=== PATIENT | male | born 1945 | race Caucasian/White ===

== ENCOUNTER 2017-04-17 13:38 | Inpatient (IN) | payer MEDICARE, OTHER ==
[~2017-04-17] VITALS: Ht 172.7 cm; Wt 56.7 kg
[2017-04-17 13:53] VITALS: BP 118/72; PULSE 71; RESP 16; TEMP 98.6
--- NOTE | 2017-04-17 14:11 | PD ---
HPI Chief Complaint: Altered Mental Status Time Seen by Provider: 14:03 Travel History International Travel<30 days: No Contact w/Intl Traveler<30days: No Traveled to known affect area: No History of Present Illness HPI Patient comes in for failure to thrive and altered mental status. Patient transferred from [facility]. Patient has a history of schizophrenia, dementia, hyperlipidemia, hypertension, GERD, and depression. Patient is nonverbal thus limiting H&P, but responds to painful stimuli. Patient reportedly has not been eating or drinking much over the last 5 days per RN report sent by rehabilitation [facility]. Nothing made symptoms better or worse as reported to RN. [facility] Past Medical History Depression: Yes High Cholesterol: Yes Dementia: Yes Schizophrenia: Yes Social History Alcohol Use: No Tobacco Use: No Substance Use: No Allergies-Medications (Allergen,Severity, Reaction): Coded Allergies: COLT Inhibitors (Verified Allergy, Unknown, 04/17/17) Review of Systems ROS Limitations: Altered Mental Status Except as stated in HPI: all other systems reviewed are Neg Physical Exam Exam Limitations: Altered Mental Status Narrative GENERAL: Well-developed, under nourished, in no acute distress, and ill appearing, but nontoxic. SKIN: Focused skin assessment warm and dry. Mild tenting of the skin noted. HEAD: Atraumatic. Normocephalic. EYES: Pupils equal and round. EOMI. No scleral icterus. No injection or drainage. ENT: No nasal bleeding or discharge. Mucous membranes pink and moist. There is questionable thrush location is not cooperative for me to evaluate fully on this. NECK: Trachea midline. Supple. No nuclear rigidity. CARDIOVASCULAR: Regular rate and rhythm. No murmur appreciated. RESPIRATORY: No accessory muscle use. No respiratory distress. Clear to auscultation. Breath sounds equal bilaterally. GASTROINTESTINAL: Abdomen soft, non-tender, nondistended, and no guarding. Hepatic and splenic margins not palpable. Normal bowel sounds 4. No pulsatile mass. MUSCULOSKELETAL: No obvious deformities. No clubbing. No cyanosis. No edema. NEUROLOGICAL: Awake and alert. No obvious cranial nerve deficits. Data Data Last Documented VS Vital Signs Date Time Temp Pulse Resp B/P Pulse Ox O2 Delivery O2 Flow Rate FiO2 04/17/17 13:59 97 Room Air 04/17/17 13:53 98.6 71 16 118/72 Orders Electrocardiogram (04/17/17 14:02) Complete Blood Count With Diff (04/17/17 14:02) Comprehensive Metabolic Panel (04/17/17 14:02) Creatine Kinase (Cpk) (04/17/17 14:02) Prothrombin Time / Inr (Pt) (04/17/17 14:02) Act Partial Throm Time (Ptt) (04/17/17 14:02) Troponin I (04/17/17 14:02) Urinalysis - C+S If Indicated (04/17/17 14:02) Lactic Acid Sepsis Protocol (04/17/17 14:02) Blood Culture (04/17/17 14:02) Chest, Single Ap (04/17/17 14:02) Ct Brain W/O Iv Contrast(Rout) (04/17/17 14:02) Blood Glucose (04/17/17 14:02) Ecg Monitoring (04/17/17 14:02) Iv Access Insert/Monitor (04/17/17 14:02) Oximetry (04/17/17 14:02) CKMB (04/17/17 14:05) CKMB% (04/17/17 14:05) Sodium Chlorid 0.9% 500 Ml Inj (Ns 500 M (04/17/17 15:15) Comprehensive Metabolic Panel (04/18/17 06:00) Free Thyroxine (T4) (04/18/17 06:00) Hemoglobin (Hgb) A1c (04/18/17 06:00) Magnesium (Mg) (04/18/17 06:00) Phosphorus (Po4) (04/18/17 06:00) Thyroid Stimulating Hormone (04/18/17 06:00) Complete Blood Count With Diff (04/18/17 06:00) Admit To Inpatient (04/17/17 ) Vital Signs (Adult) Q4H (04/17/17 16:45) Neuro Checks Q4H (04/17/17 16:45) Activity Oob With Assistance (04/17/17 16:45) Diet Regular Basic (04/17/17 Dinner) D5-1/2 Ns + Kcl 20 Meq Inj (D5-1/2 Ns + (04/17/17 16:45) Sodium Chloride 0.9% Flush (Ns Flush) (04/17/17 16:45) Sodium Chloride 0.9% Flush (Ns Flush) (04/17/17 21:00) Acetaminophen (Tylenol) (04/17/17 16:45) Ondansetron Inj (Zofran Inj) (04/17/17 18:00) Prochlorperazine Supp (Compazine Supp) (04/17/17 16:45) Resp Oxygen Abhinav C Titrat 1-4 L (04/17/17 ) Pt Request For Service (04/17/17 16:45) Ot Request For Service (04/17/17 16:45) Speech Therapy Consult-Eval/Tx (04/17/17 16:45) Case Management Consult (04/17/17 16:45) Vte Prophylaxis Not Indicated (04/17/17 16:45) Enoxaparin Inj (Lovenox Inj) (04/17/17 16:45) Scd Bilateral/Knee High KRYSTA.BID (04/17/17 16:45) Mynor Bilateral/Knee High KRYSTA.QSHIFT (04/17/17 16:45) Naloxone Inj (Narcan Inj) (04/17/17 16:45) Docusate Sodium-Senna (Kasandra-Colace) (04/17/17 21:00) Magnesium Hydroxide Liq (Milk Of Magnesi (04/17/17 16:45) Sennosides (Senokot) (04/17/17 16:45) Bisacodyl Supp (Dulcolax Supp) (04/17/17 16:45) Lactulose Liq (Lactulose Liq) (04/17/17 16:45) Inpatient Certification (04/17/17 ) Admit Order (Ed Use Only) (04/17/17 16:48) Labs Laboratory Tests Test 04/17/17 04/17/17 14:05 15:20 White Blood Count 8.0 TH/MM3 Red Blood Count 5.12 MIL/MM3 Hemoglobin 15.9 GM/DL Hematocrit 46.2 % Mean Corpuscular Volume 90.3 FL Mean Corpuscular Hemoglobin 31.0 PG Mean Corpuscular Hemoglobin 34.4 % Concent Red Cell Distribution Width 13.3 % Platelet Count 181 TH/MM3 Mean Platelet Volume 8.7 FL Neutrophils (%) (Auto) 75.8 % Lymphocytes (%) (Auto) 14.6 % Monocytes (%) (Auto) 8.8 % Eosinophils (%) (Auto) 0.3 % Basophils (%) (Auto) 0.5 % Neutrophils # (Auto) 6.1 TH/MM3 Lymphocytes # (Auto) 1.2 TH/MM3 Monocytes # (Auto) 0.7 TH/MM3 Eosinophils # (Auto) 0.0 TH/MM3 Basophils # (Auto) 0.0 TH/MM3 CBC Comment DIFF FINAL Differential Comment Prothrombin Time 13.1 SEC Prothromb Time International 1.2 RATIO Ratio Activated Partial 26.6 SEC Thromboplast Time Sodium Level 154 MEQ/L Potassium Level 4.0 MEQ/L Chloride Level 116 MEQ/L Carbon Dioxide Level 27.6 MEQ/L Anion Gap 10 MEQ/L Blood Urea Nitrogen 38 MG/DL Creatinine 1.04 MG/DL Estimat Glomerular Filtration 71 ML/MIN Rate Random Glucose 87 MG/DL Lactic Acid Level 1.1 mmol/L Calcium Level 8.8 MG/DL Total Bilirubin 0.8 MG/DL Aspartate Amino Transf 22 U/L (AST/SGOT) Alanine Aminotransferase 18 U/L (ALT/SGPT) Alkaline Phosphatase 90 U/L Total Creatine Kinase 331 U/L Creatine Kinase MB 1.2 NG/ML Creatine Kinase MB % 0.4 % Troponin I LESS THAN 0.02 NG/ML Total Protein 6.5 GM/DL Albumin 3.5 GM/DL Urine Color YELLOW Urine Turbidity CLEAR Urine pH 5.5 Urine Specific [place] 1.034 Urine Protein 30 mg/dL Urine Glucose (UA) NEG mg/dL Urine Ketones 40 mg/dL Urine Occult Blood NEG Urine Nitrite NEG Urine Bilirubin NEG Urine Urobilinogen 2.0 MG/DL Urine Leukocyte Esterase NEG Urine RBC LESS THAN 1 /hpf Urine WBC 1 /hpf Urine Mucus FEW /lpf Microscopic Urinalysis Comment CATH-CULT NOT IND MDM Medical Decision Making Medical Screen Exam Complete: Yes Emergency Medical Condition: Yes Interpretation(s) CT head read by the radiologist shows: Negative for an acute process. Chest x-ray by the radiologist shows: No acute process. Differential Diagnosis Alterman also asked, failure to thrive, dehydration, electrolyte abnormality, CVA, pneumonia, UTI, other Narrative Course Patient was seen and examined. IV was established patient's placed on continues cardiac monitoring. Patient was given 500 cc of IV fluid. Labs were obtained and reviewed. Chest x-ray and CT were obtained and reviewed. Discussed patient with Dr. Hendricks, who is in agreement with plan of care and disposition. Discussed patient with hospitalist, who is agreeable to admit the patient. Physician Communication Physician Communication [id number] Ortiz, who is agreeable to admit the patient. Diagnosis Primary Impression: Altered mental status, unspecified Qualified Code: R41.82 - Altered mental status, unspecified altered mental status type Additional Impressions: Failure to thrive in adult Mild dehydration Admitting Information Admitting Physician Requests: Admit Condition: Stable George Thakur Apr 17, 2017 14:11
[2017-04-17 14:27] LABS: AUTOMATED NEUTROPHIL # 6.1 TH/MM3 (1.8-7.7); BASOPHIL % 0.5 % (0.0-2.0); EOSINOPHIL % 0.3 % (0.0-4.0); HEMATOCRIT 46.2 % (39.0-51.0); HEMO FLAGS DIFF FINAL; LYMPH % 14.6 % (9.0-44.0); LYMPHOCYTE # 1.2 TH/MM3 (1.0-4.8); MEAN CELL VOLUME 90.3 FL (80.0-100.0); MEAN CORPUSCULAR HGB CONC 34.4 % (32.0-36.0); MONO % 8.8 % (0.0-8.0); NEUT % 75.8 % (16.0-70.0); PLATELET COUNT 181 TH/MM3 (150-450); RED BLOOD COUNT 5.12 MIL/MM3 (4.50-5.90); RED CELL DISTRIBUTION WIDTH 13.3 % (11.6-17.2)
[2017-04-17 14:36] LABS: APTT (PATIENT) 26.6 SEC (24.3-30.1); INTERNATIONAL NORMALIZED RATIO 1.2 RATIO; PROTHROMBIN TIME - PATIENT 13.1 SEC (9.8-11.6)
[2017-04-17 14:45] LABS: ANION GAP 10 MEQ/L (5-15); AST (GOT) 22 U/L (15-37); BICARBONATE 27.6 MEQ/L (21.0-32.0); BLOOD UREA NITROGEN 38 MG/DL (7-18); CHLORIDE 116 MEQ/L (98-107); GLOMERULAR FILTRATION RATE 71 ML/MIN (>89); SODIUM (NA) 154 MEQ/L (136-145)
[2017-04-17 14:46] LABS: ALT (GPT) 18 U/L (12-78)
[2017-04-17 14:50] LABS: ALKALINE PHOSPHATASE 90 U/L (45-117); CREATINE KINASE 331 U/L (39-308); TOTAL BILIRUBIN ADULT 0.8 MG/DL (0.2-1.0)
[2017-04-17 15:01] LABS: CKMB 1.2 NG/ML (0.5-3.6)
[2017-04-17] MEDS ORDERED: SODIUM CHLORID 0.9% 500 ML INJ 500 ML IV ONE (15:15)
[2017-04-17 15:45] LABS: BLOOD, URINE NEG (NEG); GLUCOSE,URINE NEG (NEG); KETONE, URINE 40 mg/dL (NEG); MUCUS URINE FEW /lpf (OCC); NITRITE,URINE NEG (NEG); PH, URINE 5.5 (5.0-8.5); URINE COLOR YELLOW (YELLW/STRAW)
[2017-04-17 15:47] LABS: COMMENT (UR) CATH-CULT NOT IND; CULTURE IF INDICATED CATH CULTURE NOT IND
--- NOTE | 2017-04-17 15:49 | RADRPT ---
EXAM DATE/TIME: 04/17/2017 14:36 [facility] COMPARISON: No previous studies available for comparison. INDICATIONS : Short of breath. MEDICAL HISTORY : Altered mental status SURGICAL HISTORY : Unobtainable ENCOUNTER: Initial ACUITY: 1 day PAIN SCORE: Non-responsive. LOCATION: Bilateral chest FINDINGS: A single view of the chest demonstrates the lungs to be symmetrically aerated without evidence of mas s, infiltrate or effusion. The cardiomediastinal contours are unremarkable. Osseous structures are intact. CONCLUSION: No acute disease. Wing Rivera MD on April 17, 2017 at 15:47 Board Certified Radiologist. This report was verified electronically.
--- NOTE | 2017-04-17 16:15 | RADRPT ---
EXAM DATE/TIME: 04/17/2017 15:39 [facility] COMPARISON: No previous studies available for comparison. INDICATIONS : Altered mental status. RADIATION DOSE: 56.35 CTDIvol (mGy) MEDICAL HISTORY : Dementia. SURGICAL HISTORY : None. ENCOUNTER: Initial ACUITY: 1 day PAIN SCALE: Non-responsive LOCATION: Bilateral head TECHNIQUE: Multiple contiguous axial images were obtained of the head. Using automated exposure control and adj ustment of the mA and/or kV according to patient size, radiation dose was kept as low as reasonably a chievable to obtain optimal diagnostic quality images. DICOM format image data is available electro nically for review and comparison. FINDINGS: CEREBRUM: The ventricles are normal for age. No evidence of midline shift, mass lesion, hemorrhage or acute in farction. No extra-axial fluid collections are seen. POSTERIOR FOSSA: The cerebellum and brainstem are intact. The 4th ventricle is midline. The cerebellopontine angle i s unremarkable. EXTRACRANIAL: The visualized portion of the orbits is intact. SKULL: The calvaria is intact. No evidence of skull fracture. CONCLUSION: Negative for an acute process. Oneil Rae MD FACR on April 17, 2017 at 16:13 Board Certified Radiologist. This report was verified electronically.
[2017-04-17] MEDS ORDERED: SODIUM CHLORIDE 0.9% FLUSH 10 ML FLUSH IV FLUSH PRN (16:45)
[2017-04-17] MEDS ORDERED: NALOXONE HCL 0.4 MG/ML AMP IV PRN (16:45)
[2017-04-17] MEDS ORDERED: SENNOSIDES 8.6 MG TAB PO PRN (16:45)
[2017-04-17] MEDS ORDERED: LACTULOSE SYRUP 20 GM/30 ML CUP PO PRN (16:45)
[2017-04-17] MEDS ORDERED: MAGNESIUM HYDROXIDE SUSP 30 ML CUP PO PRN (16:45)
[2017-04-17] MEDS ORDERED: BISACODYL 10 MG SUPP RECTAL PRN (16:45)
[2017-04-17] MEDS ORDERED: ACETAMINOPHEN 325 MG TAB PO PRN (17:00)
--- NOTE | 2017-04-17 17:32 | HHI.HP ---
[facility] Santosh Aldrich MD Admission Diagnosis altered mental status, failure to thrive, dehydration Diagnoses: (1) Failure to thrive in adult Diagnosis: Principal (2) Altered mental status, unspecified Diagnosis: Principal (3) Dehydration Diagnosis: Principal (4) Hypercalcemia Diagnosis: Secondary (5) Schizophrenia Diagnosis: Secondary (6) Dementia Diagnosis: Secondary (7) GERD (gastroesophageal reflux disease) Diagnosis: Secondary (8) HTN (hypertension) Diagnosis: Secondary (9) Oral thrush Diagnosis: Principal Chief Complaint: poor PO intake Travel History International Travel<30 Days: No Contact w/Intl Traveler <30 Da: No Traveled to Known Affected Are: No History of Present Illness This is a 71-year-old male patient sent from a local shelter facility with past medical history which includes dementia, schizophrenia, depression, hypertension, hyperlipidemia and GERD. Patient was sent to the emergency department because he has had poor by mouth intake for the past 5 days. According to review of shelter facility records patient has had a decline over the past 3 weeks. At this point patient is non-verbal and unable to follow commands therefore information gathered from physical exam as well as review of prior computerized charting and shelter facility documentation. Patient appears cachectic, dehydrated and smells of urine. Review of Systems ROS Limitations: Clinical Condition, Altered Mental Status, Poor Historian Past Family Social History Past Medical History dementia, schizophrenia, depression, hypertension, hyperlipidemia and GERD Past Surgical History Unable to obtain at this time secondary to patient's clinical condition Reported Medications ABH gel Aspirin 81 mg by mouth daily Carbidopa levodopa 85226 milligrams one tablet 3 times a day Clozapine 300 mg by mouth daily Norvasc 5 mg by mouth daily Seroquel 200 mg by mouth at bedtime, 50 mg by mouth 2 times a day Zoloft 150 mg by mouth daily Zocor 10 mg by mouth daily Colace 100 mg 1 tablet daily Ibuprofen 200 mg 2 tablets by mouth every 6 hours as needed for pain and MiraLAX daily Ropinirole 0.25 mg every 8 hours Tylenol 325 mg 2 tablets by mouth every 4 hours as needed for pain Allergies: Coded Allergies: COLT Inhibitors (Verified Allergy, Unknown, 04/17/17) Active Ordered Medications Current Medications Medications (Trade) Dose Ordered Sig/Kimberly Route Start Time Stop Time Status Last Admin (D5-1/2 NS + KCl 20 Meq Inj) 1,000 ml @ 100 mls/hr Q10H IV 04/17/17 16:45 (NS Flush) 2 ml UNSCH PRN IV FLUSH 04/17/17 16:45 (NS Flush) 2 ml BID IV FLUSH 04/17/17 21:00 (Tylenol) 650 mg Q4H PRN PO 04/17/17 17:00 (Zofran Inj) 4 mg Q6HR PRN IVP 04/17/17 18:00 (Compazine Supp) 25 mg Q12HR PRN RECTAL 04/17/17 21:00 (Lovenox Inj) 30 mg Q24H SQ 04/17/17 18:00 (Narcan Inj) 0.4 mg UNSCH PRN IV 04/17/17 16:45 (Kasandra-Colace) 1 tab BID PO 04/17/17 21:00 (Milk Of Magnesia Liq) 30 ml Q12H PRN PO 04/17/17 16:45 (Senokot) 17.2 mg Q12H PRN PO 04/17/17 16:45 (Dulcolax Supp) 10 mg DAILY PRN RECTAL 04/17/17 16:45 Lactulose 30 ml 30 ml DAILY PRN PO 04/17/17 16:45 (Diflucan 100 Mg Premix Bag) 50 ml @ 50 mls/hr Q24H IV 04/17/17 17:00 Family History Unable to obtain secondary to patient's mental status Social History Patient currently resides in shelter facility Physical Exam Vital Signs Vital Signs Date Time Temp Pulse Resp B/P Pulse Ox O2 Delivery O2 Flow Rate FiO2 04/17/17 13:59 97 Room Air 04/17/17 13:53 98.6 71 16 118/72 Physical Exam GENERAL: This is a cachectic elderly gentleman visibly dehydrated with dry oral mucosa poor skin turgor nonverbal and does not follow commands SKIN: Generalized thinning of skin with poor skin turgor and tenting. Sacral area of pink blanchable HEAD: Atraumatic. Normocephalic. No temporal or scalp tenderness. EYES: Unable to fully evaluate patient's eyes are matted shut ENT: Unable to open patient's mouth to fully assess possible thrush NECK: Trachea midline. No JVD or lymphadenopathy. Supple, nontender, no meningeal signs. CARDIOVASCULAR: Regular rate and rhythm without murmurs, gallops, or rubs. S1- S2 no S3 or S4 no heave or thrill or rub or gallop RESPIRATORY: Diminished throughout with poor air entry secondary to effort GASTROINTESTINAL: Abdomen soft, non-tender, nondistended. No guarding. Hypoactive bowel sounds 4 quadrants MUSCULOSKELETAL: Generalized muscular atrophy noted. Quite contracted at this time NEUROLOGICAL: Patient resting in bed does not open eyes to verbal stimuli. HE IS nonverbal and does not follow commands. Generalized weakness throughout Not able to assess insight and judgment NOR mood and behavior Laboratory Laboratory Tests Test 04/17/17 04/17/17 14:05 15:20 White Blood Count 8.0 Red Blood Count 5.12 Hemoglobin 15.9 Hematocrit 46.2 Mean Corpuscular Volume 90.3 Mean Corpuscular Hemoglobin 31.0 Mean Corpuscular Hemoglobin 34.4 Concent Red Cell Distribution Width 13.3 Platelet Count 181 Mean Platelet Volume 8.7 Neutrophils (%) (Auto) 75.8 Lymphocytes (%) (Auto) 14.6 Monocytes (%) (Auto) 8.8 Eosinophils (%) (Auto) 0.3 Basophils (%) (Auto) 0.5 Neutrophils # (Auto) 6.1 Lymphocytes # (Auto) 1.2 Monocytes # (Auto) 0.7 Eosinophils # (Auto) 0.0 Basophils # (Auto) 0.0 CBC Comment DIFF FINAL Differential Comment Prothrombin Time 13.1 Prothromb Time International 1.2 Ratio Activated Partial 26.6 Thromboplast Time Sodium Level 154 Potassium Level 4.0 Chloride Level 116 Carbon Dioxide Level 27.6 Anion Gap 10 Blood Urea Nitrogen 38 Creatinine 1.04 Estimat Glomerular Filtration 71 Rate Random Glucose 87 Lactic Acid Level 1.1 Calcium Level 8.8 Total Bilirubin 0.8 Aspartate Amino Transf 22 (AST/SGOT) Alanine Aminotransferase 18 (ALT/SGPT) Alkaline Phosphatase 90 Total Creatine Kinase 331 Creatine Kinase MB 1.2 Creatine Kinase MB % 0.4 Troponin I LESS THAN 0.02 Total Protein 6.5 Albumin 3.5 Urine Color YELLOW Urine Turbidity CLEAR Urine pH 5.5 Urine Specific [place] 1.034 Urine Protein 30 Urine Glucose (UA) NEG Urine Ketones 40 Urine Occult Blood NEG Urine Nitrite NEG Urine Bilirubin NEG Urine Urobilinogen 2.0 Urine Leukocyte Esterase NEG Urine RBC LESS THAN 1 Urine WBC 1 Urine Mucus FEW Microscopic Urinalysis Comment CATH-CULT NOT IND Date/Time Procedure Status Source Growth 04/17/17 15:15 Aerobic Blood Culture Received Blood Peripheral Pending 04/17/17 15:15 Anaerobic Blood Culture Received Blood Peripheral Pending Result Diagram: 04/17/17 1405 04/17/17 1405 Imaging Last Impressions Head CT 04/17/171401 Signed Impressions: Service Date/Time: Monday, April 17, 2017 15:39 - CONCLUSION: Negative for an acute process. Oneil Rae MD FACR Chest X-Ray 04/17/171401 Signed Impressions: Service Date/Time: Monday, April 17, 2017 14:36 - CONCLUSION: No acute disease. Wing Rivera MD Assessment and Plan Problem List: (1) Altered mental status, unspecified ICD Code: R41.82 Status: Acute (2) Failure to thrive in adult ICD Code: R62.7 Status: Acute (3) Dehydration ICD Code: E86.0 Status: Acute (4) Hypercalcemia ICD Code: E83.52 Status: Acute (5) Oral thrush ICD Code: B37.0 Status: Acute (6) Dementia ICD Code: F03.90 Status: Chronic (7) Schizophrenia ICD Code: F20.9 Status: Chronic (8) HTN (hypertension) ICD Code: I10 Status: Chronic (9) GERD (gastroesophageal reflux disease) ICD Code: K21.9 Status: Chronic Assessment and Plan This is a 71-year-old male patient sent from a local shelter facility with past medical history which includes dementia, schizophrenia, depression, hypertension, hyperlipidemia and GERD. Patient was sent to the emergency department because he has not poor by mouth intake for the past 5 days. According to review of shelter facility records patient has had a decline over the past 3 weeks. At this point patient is non-verbal and unable to follow commands therefore information gathered from physical exam as well as review of prior computerized charting and shelter facility documentation. Patient appears cachectic, dehydrated and smells of urine. Poor by mouth intake Altered mental status Dehydration HYPERNATREMIA Patient has received 1 L NS fluid bolus emergency department D51/2NS and KCL at 100ml/H CT of the head reviewed no acute process identified CXR no acute disease process UA reviewed no culture indicated Serial neuro checks Consult speech therapy for evaluation and treatment HyperNATREMIA- sodium level 154 Continue with IV fluids D5 half-normal saline and 20 of KCl at 100 mL per hour Recheck CMP in a.m. Possible oral thrush- patient refusing by mouth medications Diflucan 100 mg IV daily Dementia Schizophrenia Depression Hypertension hold Norvasc at this time continue to monitor blood pressure trend Hyperlipidemia hold home Zocor as patient is refusing to take by mouth medications at this time Consult PT/OT/ST DVT prophylaxis with Lovenox 30 units subcutaneous daily Discussed with ER provider, nursing patient and The exam, history, and the medical decision-making described in the above note were completed with the assistance of the mid-level provider. I reviewed and agree with the findings presented. I attest that I had a [id number] encounter with the patient on the same day, and personally performed and documented my assessment and findings in the medical record. Code Status Full code at this time Discussed Condition With DISCUSSED CASE WITH EMERGENCY ROOM PHYSICIAN, His nurse, and my PA. Physician Certification 2 Midnight Certification Type: Admission for Inpatient Services Order for Inpatient Services The services are ordered in accordance with Medicare regulations or non- Medicare payer requirements, as applicable. In the case of services not specified as inpatient-only, they are appropriately provided as inpatient services in accordance with the 2-midnight benchmark. Estimated LOS (days): 4 days is the estimated time the patient will need to remain in the hospital, assuming treatment plan goals are met and no additional complications. Post-Hospital Plan: Not yet determined Problem Qualifiers (1) Altered mental status, unspecified: Qualified Code: R41.82 - Altered mental status, unspecified altered mental status type Ciara Pack Apr 17, 2017 17:32 Oneil Ortiz DO Apr 17, 2017 18:28
[2017-04-17] MEDS ORDERED: ONDANSETRON HCL 4 MG/2 ML VIAL IVP PRN (18:00)
[2017-04-17] MEDS: D5-1/2 NS + KCL 20 MEQ INJ 1,000 ML IV SCH (18:06)
[2017-04-17] MEDS: FLUCONAZOLE 100 MG PREMIX BAG 50 ML IV SCH (18:07)
[2017-04-17 18:08] VITALS: BP 131/85; PULSE 78; RESP 16; O2SAT 95
[2017-04-17] MEDS: ENOXAPARIN SODIUM 30 MG/0.3 ML SYRINGE SQ SCH (18:08)
[2017-04-17 18:29] VITALS: RESP 16; O2SAT 95
[2017-04-17] MEDS ORDERED: SINE25TA PO (18:51)
[2017-04-17] MEDS ORDERED: ASPI-110 PO (18:51)
[2017-04-17] MEDS ORDERED: CLOZ100 PO (18:51)
[2017-04-17] MEDS ORDERED: CLOZ25TA2 PO (18:51)
[2017-04-17] MEDS ORDERED: ABH GEL TOPICAL ×2 (18:55→19:08)
[2017-04-17] MEDS ORDERED: SERO50TA PO (19:04)
[2017-04-17] MEDS ORDERED: COLA100C PO (19:04)
[2017-04-17] MEDS ORDERED: MAPA325T PO (19:04)
[2017-04-17] MEDS ORDERED: AMLO5TAB2 PO (19:04)
[2017-04-17] MEDS ORDERED: IBUP400T20 PO (19:04)
[2017-04-17] MEDS ORDERED: RANI1TAB5 PO (19:04)
[2017-04-17] MEDS ORDERED: MIRA3350 PO (19:04)
[2017-04-17] MEDS ORDERED: ZOCO20TA PO (19:04)
[2017-04-17] MEDS ORDERED: SERO200T PO (19:04)
[2017-04-17] MEDS ORDERED: ROPI0.25 PO (19:04)
[2017-04-17] MEDS ORDERED: ZOCO10TA PO (19:06)
[2017-04-17] MEDS ORDERED: ZOLO100T PO (19:06)
[2017-04-17 19:26] VITALS: BP 134/78; PULSE 74; RESP 18; O2SAT 95
[2017-04-17 21:00] VITALS: BP 137/71; PULSE 82; RESP 18; TEMP 97.1; O2SAT 96
[2017-04-17] MEDS ORDERED: PROCHLORPERAZINE 25 MG SUPP RECTAL PRN (21:00)
[2017-04-17] MEDS: DOCUSATE SODIUM 50 MG/SENNA 8.6 MG TAB PO SCH (21:00)
[2017-04-18] VITALS: BP 106/61; PULSE 80; RESP 18; TEMP 97.2; O2SAT 96
[2017-04-18] MEDS: SODIUM CHLORIDE 0.9% FLUSH 10 ML FLUSH IV FLUSH SCH ×3 (00:05→21:00)
[2017-04-18] MEDS: D5-1/2 NS + KCL 20 MEQ INJ 1,000 ML IV SCH (02:45)
[2017-04-18 05:07] LABS: AUTOMATED NEUTROPHIL # 4.6 TH/MM3 (1.8-7.7); BASOPHIL # 0.1 TH/MM3 (0-0.2); BASOPHIL % 0.8 % (0.0-2.0); EOSINOPHIL # 0.1 TH/MM3 (0-0.4); EOSINOPHIL % 0.8 % (0.0-4.0); HEMATOCRIT 43.1 % (39.0-51.0); HEMO FLAGS DIFF FINAL; LYMPH % 18.6 % (9.0-44.0); LYMPHOCYTE # 1.2 TH/MM3 (1.0-4.8); MEAN CELL VOLUME 89.8 FL (80.0-100.0); MEAN CORPUSCULAR HEMOGLOBIN 30.9 PG (27.0-34.0); MEAN CORPUSCULAR HGB CONC 34.4 % (32.0-36.0); MONO % 9.2 % (0.0-8.0); NEUT % 70.6 % (16.0-70.0); PLATELET COUNT 184 TH/MM3 (150-450); RED CELL DISTRIBUTION WIDTH 12.9 % (11.6-17.2); WHITE BLOOD COUNT 6.4 TH/MM3 (4.0-11.0)
[2017-04-18 05:44] LABS: ALT (GPT) 18 U/L (12-78); ANION GAP 7 MEQ/L (5-15); AST (GOT) 23 U/L (15-37); BICARBONATE 29.4 MEQ/L (21.0-32.0); BLOOD UREA NITROGEN 31 MG/DL (7-18); CHLORIDE 119 MEQ/L (98-107); GLOMERULAR FILTRATION RATE 77 ML/MIN (>89); MAGNESIUM 2.5 MG/DL (1.5-2.5); SODIUM (NA) 155 MEQ/L (136-145)
[2017-04-18 05:52] LABS: ALKALINE PHOSPHATASE 80 U/L (45-117); TOTAL BILIRUBIN ADULT 0.7 MG/DL (0.2-1.0)
[2017-04-18 07:44] VITALS: O2SAT 94
[2017-04-18 08:00] VITALS: BP 108/60; PULSE 79; RESP 20; TEMP 96; O2SAT 96
[2017-04-18] MEDS: DOCUSATE SODIUM 50 MG/SENNA 8.6 MG TAB PO SCH ×2 (09:00→21:00)
[2017-04-18] MEDS: DEXTROSE 5% IN WATE 1000ML INJ 1,000 ML IV SCH (11:15)
[2017-04-18 12:00] VITALS: BP 116/78; PULSE 76; RESP 20; TEMP 97; O2SAT 96
--- NOTE | 2017-04-18 15:16 | HHI.PR ---
Subjective Remarks Follow up for dementia, poor oral intake. Patient is resting in bed. Does not answer any question, opens eyes slightly but does not participate in conversation. Objective Vitals Vital Signs Date Time Temp Pulse Resp B/P Pulse Ox O2 Delivery O2 Flow Rate FiO2 04/18/17 12:00 97.0 76 20 116/78 96 04/18/17 08:00 96.0 79 20 108/60 96 04/18/17 07:44 94 21 04/18/17 00:00 97.2 80 18 106/61 96 04/17/17 21:00 97.1 82 18 137/71 96 04/17/17 19:26 74 18 134/78 95 Room Air 04/17/17 18:29 16 95 04/17/17 18:08 78 16 131/85 95 Room Air I/O 04/17/17 04/17/17 04/17/17 04/18/17 04/18/17 04/18/17 07:00 15:00 23:00 07:00 15:00 23:00 Intake Total 461 ml 538 ml Output Total 0 ml Balance 461 ml 538 ml Intake Oral 0 ml 0 ml IV Total 461 ml 538 ml Output Urine Total 0 ml # Voids 1 Result Diagram: 04/18/17 0440 04/18/17 0440 Imaging Last Impressions Head CT 04/17/17 1402 Signed Impressions: Service Date/Time: Monday, April 17, 2017 15:39 - CONCLUSION: Negative for an acute process. Oneil Rae MD FACR Chest X-Ray 04/17/17 1402 Signed Impressions: Service Date/Time: Monday, April 17, 2017 14:36 - CONCLUSION: No acute disease. Wing Rivera MD Objective Remarks GENERAL: Sleepy, opens eyes on verbal commands, NAD. SKIN: Warm and dry. HEAD: Normocephalic. EYES: No scleral icterus. No injection or drainage. NECK: Supple, trachea midline. No JVD or lymphadenopathy. CARDIOVASCULAR: Regular rate and rhythm without murmurs, gallops, or rubs. RESPIRATORY: Breath sounds equal bilaterally. No accessory muscle use. GASTROINTESTINAL: Abdomen soft, non-tender, nondistended. MUSCULOSKELETAL: No cyanosis, or edema. BACK: Nontender without obvious deformity. No CVA tenderness. A/P Problem List: (1) Failure to thrive in adult ICD Code: R62.7 Status: Acute (2) Altered mental status, unspecified ICD Code: R41.82 Status: Acute (3) Dehydration ICD Code: E86.0 Status: Acute (4) Hypercalcemia ICD Code: E83.52 Status: Acute (5) Schizophrenia ICD Code: F20.9 Status: Chronic (6) Dementia ICD Code: F03.90 Status: Chronic (7) GERD (gastroesophageal reflux disease) ICD Code: K21.9 Status: Chronic (8) HTN (hypertension) ICD Code: I10 Status: Chronic (9) Oral thrush ICD Code: B37.0 Status: Acute Assessment and Plan This is a 71-year-old male patient [facility] with past medical history which includes dementia, schizophrenia, depression, hypertension, hyperlipidemia and GERD. Patient was sent to the emergency department because he has not poor by mouth intake for the past 5 days. [facility] records patient has had a decline over the past 3 weeks. At this point patient is non-verbal and unable to follow commands therefore information gathered from physical exam as well as review of prior computerized charting and [facility] facility documentation. Patient appears cachectic, dehydrated and smells of urine. Poor by mouth intake Altered mental status Dehydration Hypernatremia Patient has received 1 L NS fluid bolus emergency department Discontinue D51/2NS and KCL at 100ml/hour. Patient has significant free water deficit. Na 154 --> 155. Start D5W @84cc/hour -- with this approach, Na dropped from 155 --> 151. CT of the head reviewed no acute process identified CXR no acute disease process UA reviewed no culture indicated Serial neuro checks Consulted speech recommends NPO. Possible oral thrush- patient refusing by mouth medications Diflucan 100 mg IV daily Dementia Schizophrenia Depression - Palliative care was consulted. Appreciate Palliative care input - they talked to patient's brother. - Apparently, patient likes to eat only wrapped food and no red meat. - Changed diet accordingly. Will consult Psychiatry as well due to patient's history of psychiatric illness. Hypertension - Currently normotensive. No acute issues. Hyperlipidemia - Continue to hold. If PO intake improves, will re-start home meds. Full code. Lovenox. Problem Qualifiers (1) Altered mental status, unspecified: Qualified Code: R41.82 - Altered mental status, unspecified altered mental status type Rafael Guzmán DO Apr 18, 2017 15:16
--- NOTE | 2017-04-18 15:43 | EKG ---
Date Performed: 04/17/2017 Time Performed: 18:24:38 PTAGE: 71 years EKG: Sinus rhythm NORMAL ECG PREVIOUS TRACING : 04/17/2017 14.06 DOCTOR: Carolin Lu Interpretating Date/Time 04/18/2017 15:40:00
--- NOTE | 2017-04-18 15:50 | EKG ---
Date Performed: 04/17/2017 Time Performed: 14:06:41 PTAGE: 71 years EKG: Sinus rhythm LEFT ANTERIOR FASCICULAR BLOCK ABNORMAL ECG NO PREVIOUS TRACING DOCTOR: Carolin Lu Interpretating Date/Time 04/19/2017 07:11:33
[2017-04-18 16:01] VITALS: BP 112/69; PULSE 77; RESP 20; TEMP 97; O2SAT 95
[2017-04-18 16:09] LABS: HEMOGLOBIN A1a 1.1 %; HEMOGLOBIN A1b 1.3 %; HEMOGLOBIN Ao 86.1 %; HEMOGLOBIN P3 3.6 %
--- NOTE | 2017-04-18 16:24 | HHI.HCPN ---
Palliative care consulted to assist with goals of care. Spoke with patient's brother, John, who provided the following psychosocial information: * Originally from the [facility] * Not * 1 estranged son-- pending name and contact information. Brother John is not very forthcoming with information, will attempt to build rapport and gather information * Parents both * 2 brothers 1 sister living; 2 brother (patient is not aware of their deaths) * Worked until age 53 at an [employer] operating [employer] until he began presenting with paranoia and "had a mental break down" * Has been living in nursing homes for past 4-5 years in [place] * Patient has had many suicide attempts, most recent offense was the worst "ate a bunch of pills" per brother * No known advanced directives-- brother John has been serving as patients medical decision maker, states he has a health care proxy designation form from [facility] and will fax over to palliative care. It should be noted patient has a son and per [place] Statutes legal proxy decision making would fall to patient's son first, if he was unwilling or unable to participate then proxy decision making would fall to the majority of patient's siblings in which he has 3 living siblings. John also provided the following medical information: * Mr. Torres appears to have had a lifetime of psychiatric issues. He is described by his brother as "being odd, made fun off". He has spend much of the last 20-25 years in and out of inpatient facilities for medical and psychiatric issues. He was fairly recently hospitalized at the [facility] for about 8 months where he was placed on a medication regiment that appears to work best for him. About 20 years ago he was subjected to shock therapy after he stopped eating and presented with paranoid thoughts. His recent paranoia presents with food, he has trust issues with people who provide his food and medications, brother reports he does better if food and meds are wrapped. It should also be noted that patient does not eat red meat, he only eats chicken, turkey, and fish. Brother feels this may be contributing to why he is not eating and refusing things. Spoke with Dr. Guzmán, recommend diet orders to reflect above as this may help the patient start to eat. Also recommend psychiatric consult as brother would like this prior to making any medical decisions given patient's past psychiatric issues and paranoia (has had episodes of not eating prior to this hospitalization, has also had a PEG tube placed previously). Palliative care full consult to come tomorrow, Monday04/19/17. Mariah Mohamud FLOORING SALES MANAGER, GIANT TIRE REPAIRER Apr 18, 2017 16:24
[2017-04-18] MEDS: ENOXAPARIN SODIUM 30 MG/0.3 ML SYRINGE SQ SCH (17:48)
[2017-04-18] MEDS: FLUCONAZOLE 100 MG PREMIX BAG 50 ML IV SCH (17:49)
[2017-04-18 20:00] VITALS: BP 119/75; PULSE 84; RESP 18; TEMP 97.9; O2SAT 95
[2017-04-19] VITALS: BP 122/70; RESP 18
[2017-04-19] MEDS ORDERED: HALOPERIDOL LACTATE 5 MG/ML AMP IM ONE (05:15)
[2017-04-19 07:28] LABS: BICARBONATE 30.3 MEQ/L (21.0-32.0); POTASSIUM 4.4 MEQ/L (3.5-5.1)
[2017-04-19 08:00] VITALS: BP 140/82; PULSE 151
[2017-04-19] MEDS: DOCUSATE SODIUM 50 MG/SENNA 8.6 MG TAB PO SCH ×2 (08:27→21:00)
[2017-04-19] MEDS: SODIUM CHLORIDE 0.9% FLUSH 10 ML FLUSH IV FLUSH SCH ×2 (08:27→21:00)
--- NOTE | 2017-04-19 09:52 | HHI.PR ---
Subjective Remarks Follow up for dementia, poor oral intake. Patient is now on 4 point restraints. No IV access. Trying to get out of the bed. Does not communicate at all. Objective Vitals Vital Signs Date Time Temp Pulse Resp B/P Pulse Ox O2 Delivery O2 Flow Rate FiO2 04/19/17 08:00 151 140/82 04/19/17 00:00 18 122/70 04/18/17 20:00 97.9 84 18 119/75 95 04/18/17 16:01 97.0 77 20 112/69 95 04/18/17 12:00 97.0 76 20 116/78 96 I/O 04/18/17 04/18/17 04/18/17 04/19/17 04/19/17 04/19/17 06:59 14:59 22:59 06:59 14:59 22:59 Intake Total 538 ml 1329 ml 0 ml Output Total 0 ml 0 ml Balance 538 ml 1329 ml 0 ml Intake Oral 0 ml 0 ml 0 ml IV Total 538 ml 1329 ml Output Urine Total 0 ml 0 ml # Voids 1 1 # Bowel Movements 0 Result Diagram: 04/18/17 0440 04/19/17 0607 Imaging Last Impressions Head CT 04/17/17 140 Signed Impressions: Service Date/Time: Monday, April 17, 2017 15:39 - CONCLUSION: Negative for an acute process. Oneil Rae MD FACR Chest X-Ray 04/17/17 140 Signed Impressions: Service Date/Time: Monday, April 17, 2017 14:36 - CONCLUSION: No acute disease. Wing Rivera MD Objective Remarks GENERAL: Sleepy, opens eyes on verbal commands, NAD. SKIN: Warm and dry. HEAD: Normocephalic. EYES: No scleral icterus. No injection or drainage. NECK: Supple, trachea midline. No JVD or lymphadenopathy. CARDIOVASCULAR: Regular rate and rhythm without murmurs, gallops, or rubs. RESPIRATORY: Breath sounds equal bilaterally. No accessory muscle use. GASTROINTESTINAL: Abdomen soft, non-tender, nondistended. MUSCULOSKELETAL: No cyanosis, or edema. BACK: Nontender without obvious deformity. No CVA tenderness. A/P Problem List: (1) Failure to thrive in adult ICD Code: R62.7 Status: Acute (2) Altered mental status, unspecified ICD Code: R41.82 Status: Acute (3) Dehydration ICD Code: E86.0 Status: Acute (4) Hypercalcemia ICD Code: E83.52 Status: Acute (5) Schizophrenia ICD Code: F20.9 Status: Chronic (6) Dementia ICD Code: F03.90 Status: Chronic (7) GERD (gastroesophageal reflux disease) ICD Code: K21.9 Status: Chronic (8) HTN (hypertension) ICD Code: I10 Status: Chronic (9) Oral thrush ICD Code: B37.0 Status: Acute Assessment and Plan This is a 71-year-old male patient sent from a local assisted facility with past medical history which includes dementia, schizophrenia, depression, hypertension, hyperlipidemia and GERD. Patient was sent to the emergency department because he has not poor by mouth intake for the past 5 days. According to review of assisted facility records patient has had a decline over the past 3 weeks. At this point patient is non-verbal and unable to follow commands therefore information gathered from physical exam as well as review of prior computerized charting and assisted facility documentation. Patient appears cachectic, dehydrated and smells of urine. Poor by mouth intake Altered mental status Dehydration Hypernatremia Patient has received 1 L NS fluid bolus emergency department Discontinue D51/2NS and KCL at 100ml/hour. Patient has significant free water deficit. Na 154 --> 155. Patient was on D5W @84cc/hour. Na 155 --> 151. However, due to lack of IV access, he is not receiving any fluid. Na increased from 151 --> 153. IV access was obtained later and per RN, D5W was re-started. CT of the head reviewed no acute process identified CXR no acute disease process UA reviewed no culture indicated Serial neuro checks Consulted speech - recommends NPO. Possible oral thrush- patient refusing by mouth medications Diflucan 100 mg IV daily Dementia Schizophrenia Depression Acute agitation - Psychiatry consult pending. Patient would benefit from scheduled anti- psychotics. - Will keep Haldol IM available PRN. - Palliative care was consulted. Appreciate Palliative care input - they talked to patient's brother. - Psychiatry recommendations appreciated. Continue Seroquel and Haldol. Hypertension - Currently normotensive. No acute issues. Hyperlipidemia - Continue to hold. If PO intake improves, will re-start home meds. Full code. Lovenox. Problem Qualifiers (1) Altered mental status, unspecified: Qualified Code: R41.82 - Altered mental status, unspecified altered mental status type Rafael Guzmán DO Apr 19, 2017 09:52 Rafael Guzmán DO Apr 19, 2017 9:52 am
[2017-04-19] MEDS ORDERED: HALOPERIDOL LACTATE 5 MG/ML AMP IM PRN (10:00)
[2017-04-19] MEDS: DEXTROSE 5% IN WATE 1000ML INJ 1,000 ML IV SCH ×2 (11:05→12:41)
[2017-04-19 12:00] VITALS: BP 127/71; PULSE 116
[2017-04-19] MEDS: HALOPERIDOL LACTATE 5 MG/ML AMP IM PRN (12:38)
--- NOTE | 2017-04-19 13:04 | PD.PSY.CON ---
Provisional Diagnosis Admission Date Apr 17, 2017 at 16:51 [place]. Chronic paranoid schizophrenia, delirium due to underlying medical condition History of Present Illness Service Psychiatry Consult Requested By Reason for Consult History of schizophrenia Primary Care Physician Santosh Aldrich MD HPI The patient is a 71-year-old man, domiciled in a residential facility , [place], single, with extensive psychiatric history of paranoid schizophrenia , dementia, multiple psychiatric hospitalizations, state hospitalizations, previous suicidal attempts, history of ECT, establish outpatient care with visiting psychiatrist in residential facility, he is on Clozaril 200 mg, Seroquel 200 mg, Zoloft 150 mg, he has medical history of hypertension, hyperlipidemia and GERD. Patient was sent to the emergency department for his residential facility because he has had poor by mouth intake for the past 5 days. According to review of alf facility records patient has had a decline over the past 3 weeks. At this point patient is non-verbal and unable to follow commands therefore information gathered from physical exam as well as review of prior computerized charting and alf facility documentation. Patient appears cachectic, dehydrated and smells of urine. Admitted due to Poor by mouth intake, Altered mental, Dehydration, severe hyponatremia. On psychiatric evaluation today patient is noncooperative, restraining 4 points, sedated, he was giving Haldol 2 mg, at this moment is unable to provide any information for psychiatric assessment. As per nurses, patient has been uncooperative, agitated, at times aggressive, last night he tried to elope from the hospital had to be medicated with IM medication to help to calm him down. Collateral information from his brother John Torres was obtained: PPHx: Schizophrenia diagnosed 1979, but most probably undiagnosed developmental disorder Multiple hospitalizations State hospitalizations, over months Treated with ECT multiple times Never used any drugs Multiple suicidal attempts At baseline he is shy, might be disorganized, guarded. Tends to become paranoid against food and his medications. Social: [place]. 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 04/17/17 Acetaminophen (Mapap)325 Mg Amh548 Mg PO Q4HR PRN (PAIN) Ref 0 04/17/17 Quetiapine (Seroquel)50 Mg Tab50 Mg PO BID #60 TAB Ref 0 04/17/17 Quetiapine (Seroquel)200 Mg Dlz601 Mg PO HS #30 TAB Ref 0 04/17/17 Polyethylene Glycol 3350 Powder (Miralax Powder)17 Gm Powd17 Gm PO DAILY #1 CAN Ref 0 Mix and dissolve one measuring cap-ful (17 grams) in water or juice. 04/17/17 Ropinirole 0.25 Mg Tab0.25 Mg PO Q8HR #90 TAB Ref 0 04/17/17 Amlodipine 5 Mg Tab5 Mg PO DAILY #30 TAB Ref 0 04/17/17 Ibuprofen 400 Mg Jrc257 Mg PO Q6H PRN (PAIN/HEADACHE) Ref 0 04/17/17 Docusate Sodium (Colace)100 Mg [id number] Mg PO DAILY 04/17/17 [Abh Gel] No Conflict Check1 Applic TOPICAL Q6HR PRN (SCHIZOPHRENIA) 04/17/17 Clozapine 25 Mg Tab25 Mg PO BID Ref 0 04/17/17 Clozapine (Clozaril)100 Mg Amp898 Mg PO HS Ref 0 04/17/17 Carbidopa-Levodopa (Sinemet)25-100 Mg Tab1 Tab PO TID #90 TAB Ref 0 04/17/[address] (Aspirin 81)81 Mg Tabdr81 Mg PO DAILY Ref 0 04/17/17 Discontinued Reported Medications Simvastatin (Zocor)20 Mg Tab20 Mg PO DAILY #30 TAB Ref 0 04/17/17 Current Medications Medications (Trade) Dose Ordered Sig/Kimberly Route Start Time Stop Time Status Last Admin (NS Flush) 2 ml UNSCH PRN IV FLUSH 04/17/17 16:45 (NS Flush) 2 ml BID IV FLUSH 04/17/17 21:00 04/18/17 09:00 (Tylenol) 650 mg Q4H PRN PO 04/17/17 17:00 (Zofran Inj) 4 mg Q6HR PRN IVP 04/17/17 18:00 (Compazine Supp) 25 mg Q12HR PRN RECTAL 04/17/17 21:00 (Lovenox Inj) 30 mg Q24H SQ 04/17/17 18:00 04/18/17 17:48 (Narcan Inj) 0.4 mg UNSCH PRN IV 04/17/17 16:45 (Kasandra-Colace) 1 tab BID PO 04/17/17 21:00 (Milk Of Magnesia Liq) 30 ml Q12H PRN PO 04/17/17 16:45 (Senokot) 17.2 mg Q12H PRN PO 04/17/17 16:45 (Dulcolax Supp) 10 mg DAILY PRN RECTAL 04/17/17 16:45 Lactulose 30 ml 30 ml DAILY PRN PO 04/17/17 16:45 Fluconazole/ Sodium Chloride 50 ml @ 50 mls/hr Q24H IV 04/17/17 17:00 04/18/17 17:49 (D5W 1000 ml Inj) 1,000 ml @ 84 mls/hr [id number] IV 04/18/17 11:15 04/18/17 11:15 (Haldol Inj) 5 mg Q4H PRN IM 04/19/17 14:00 (SEROquel) 100 mg BID PO 04/19/17 21:00 Social History Social: [place]. 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 2) Patient has established outpatient care, he has family support Physical Exam Patient is restrained in 4 points, sedated Vital Signs Vital Signs Date Time Temp Pulse Resp B/P Pulse Ox O2 Delivery O2 Flow Rate FiO2 04/19/17 12:00 116 127/71 04/19/17 00:00 18 04/18/17 20:00 97.9 95 04/18/17 07:44 21 04/17/17 19:26 Room Air I/O 8/04/2704/18/17 04/19/17 08:00 16:00 00:00 Intake Total 538 ml 1329 ml Output Total 0 ml 0 ml Balance 538 ml 1329 ml Lab Results Laboratory Tests Test 04/17/17 04/17/17 14:05 15:20 White Blood Count 8.0 Red Blood Count 5.12 Hemoglobin 15.9 Hematocrit 46.2 Mean Corpuscular Volume 90.3 Mean Corpuscular Hemoglobin 31.0 Mean Corpuscular Hemoglobin 34.4 Concent Red Cell Distribution Width 13.3 Platelet Count 181 Mean Platelet Volume 8.7 Neutrophils (%) (Auto) 75.8 Lymphocytes (%) (Auto) 14.6 Monocytes (%) (Auto) 8.8 Eosinophils (%) (Auto) 0.3 Basophils (%) (Auto) 0.5 Neutrophils # (Auto) 6.1 Lymphocytes # (Auto) 1.2 Monocytes # (Auto) 0.7 Eosinophils # (Auto) 0.0 Basophils # (Auto) 0.0 CBC Comment DIFF FINAL Differential Comment Prothrombin Time 13.1 Prothromb Time International 1.2 Ratio Activated Partial 26.6 Thromboplast Time Sodium Level 154 Potassium Level 4.0 Chloride Level 116 Carbon Dioxide Level 27.6 Anion Gap 10 Blood Urea Nitrogen 38 Creatinine 1.04 Estimat Glomerular Filtration 71 Rate Random Glucose 87 Lactic Acid Level 1.1 Calcium Level 8.8 Total Bilirubin 0.8 Aspartate Amino Transf 22 (AST/SGOT) Alanine Aminotransferase 18 (ALT/SGPT) Alkaline Phosphatase 90 Total Creatine Kinase 331 Creatine Kinase MB 1.2 Creatine Kinase MB % 0.4 Troponin I LESS THAN 0.02 Total Protein 6.5 Albumin 3.5 Urine Color YELLOW Urine Turbidity CLEAR Urine pH 5.5 Urine Specific [place] 1.034 Urine Protein 30 Urine Glucose (UA) NEG Urine Ketones 40 Urine Occult Blood NEG Urine Nitrite NEG Urine Bilirubin NEG Urine Urobilinogen 2.0 Urine Leukocyte Esterase NEG Urine RBC LESS THAN 1 Urine WBC 1 Urine Mucus FEW Microscopic Urinalysis Comment CATH-CULT NOT IND Date/Time Procedure Status Source Growth 04/17/17 15:15 Aerobic Blood Culture Received Blood Peripheral Pending 04/17/17 15:15 Anaerobic Blood Culture Received Blood Peripheral Pending Mental Status Examination Limited due to lack of cooperation, sedation Appearance man, he seems to be very cachectic, acutely chronically ill, non- cooperative, sedated Assessment & Plan Problem List: (1) Delirium due to another medical condition Assessment & Plan: The patient is a 71-year-old man, domiciled in a residential facility, [place], single, with extensive psychiatric history of paranoid schizophrenia, dementia, multiple psychiatric hospitalizations, state hospitalizations, previous suicidal attempts, history of ECT, establish outpatient care with visiting psychiatrist in residential facility, he is on Clozaril 200 mg, Seroquel 200 mg, Zoloft 150 mg, he has medical history of hypertension, hyperlipidemia and GERD. Patient was sent to the emergency department for his residential facility because he has had poor by mouth intake for the past 5 days. According to review of alf facility records patient has had a decline over the past 3 weeks. At this point patient is non- verbal and unable to follow commands therefore information gathered from physical exam as well as review of prior computerized charting and alf facility documentation. Patient appears cachectic, dehydrated and smells of urine. Admitted due to Poor by mouth intake, Altered mental, Dehydration, severe hyponatremia. On psychiatric evaluation today patient is noncooperative, restraining 4 points, sedated, he was giving Haldol 2 mg, at this moment is unable to provide any information for psychiatric assessment. As per nurses, patient has been uncooperative, agitated, at times aggressive, last night he tried to elope from the hospital had to be medicated with IM medication to help to calm him down. Will increase Haldol to 5 mg IM every 8 hours when necessary aggressive behavior and agitation, we will start Seroquel 100 mg twice a day for behavioral control and psychosis. Hold Clozaril and Zoloft. QTC is 407. Patient may need psychiatric admission once medically stable. We'll follow-up in the medical floor. ICD Code: F05 Assessment & Plan Estimated LOS: days Daniel Escobedo MD Apr 19, 2017 13:04
--- NOTE | 2017-04-19 14:28 | HHI.HCPN ---
Brother John provided patient's son's name, reports his son as same name and was last known to be in the [place] area. Following numbers for potential match found via google search * [phone]-- rings busy * [phone]-- just rings no vm- will continue to try [employer] report requested by palliative care MOLD STAMPER AND REPAIRER. Mariah Mohamud, ATHLETE MARKETING AGENT Apr 19, 2017 14:28
--- NOTE | 2017-04-19 15:43 | PD.CONS ---
Consult Service Palliative Care Consult Requested By Dr. Guzmán Primary Care Physician Santosh Aldrich MD Reason for Consultation a. To assist with evaluation and management of symptoms including: Decreased oral intake and debility. b. To assist medical decision maker(s) with: better understanding of current medical conditions; weighing benefits/burdens of medical treatment options; making medical treatment decisions. . HPI History of Present Illness Mr. Ta is a 71-year-old male with a medical history significant for Parkinson's disease, paranoid schizophrenia, depression, GERD and hypertension. Patient presented from [facility] for evaluation of altered mental status and decreased oral intake for the previous 5 days. [facility] reporting clinical decline for the previous 3 weeks. Patient arrived nonverbal , limited history. CT of the head negative for acute process. Chest x-ray negative for acute process. Laboratory revealing hyponatremia. UA negative for nitrates or leukocytes. Patient was admitted for further management of altered mental status, dehydration and failure to thrive. Patient with extensive psychiatric history to include paranoid schizophrenia, dementia, anxiety, depression requiring multiple psychiatric hospitalizations, state hospitalizations and history of ECT. Telephone conversation with Jesus NATION, she tells me that patient was being followed by psychiatrist at [facility]. He was last seen by psych on 04/11/17, patient with worsening agitation /pacing, eating poorly and sleep disturbances. Seroquel was adjusted/increased at that time. Jesus NATION reports that patient was ambulating with assistance a month ago, he was able to feed himself and required assistance with ADLs. Clinical decline for the past 3 weeks, patient with increased paranoia refusing meals and medications. Worsening over the week prior to presented to ED. Patient with worsening clinical condition as evidenced by increased agitation/ paranoia requiring 4-point restraint. Palliative care was consulted for further clarifications of goals of care and assistance with healthcare proxy decision maker. Patient was seen by psychiatry, Dr. Escobedo. Seroquel restarted for behavioral control and psychosis. As per psych, patient may require psychiatric admission once medically stable. Patient seen in medical floor, he was in bed in moderate distress. 4-point restraint. Agitated/ restlessness with any interaction. Parts of physical exam deferred given agitation. Patient remains afebrile, stable hemodynamically. Intermittent tachycardia. Remains hypernatremic at 153. Has refused oral intake. Telephone conversation with patient's brother's John Ta. Obtained past medical history and psychosocial history. Patient is described by his brother as "being odd, made fun off". He has spend much of the last 20-25 years in and out of inpatient facilities for medical and psychiatric issues. He was fairly recently hospitalized at the [facility] for about 8 months where he was placed on a medication regiment that appears to work best for him. About 20 years ago he was subjected to shock therapy after he stopped eating and presented with paranoid thoughts. His recent paranoia presents with food, he has trust issues with people who provide his food and medications, brother reports he does better if food and medications are wrapped. Brother tells me that he has been serving as proxy decision maker for over 20 years. Patient has 1 son with the same name who resides in [place]. No contact information provided. Patient has 2 additional siblings, one brother and one sister who are also involved in medical decision-making. Medical update provided. Share concerns of patient's clinical condition and high risk for further complications , continue decline and given his debilitated state/failure to thrive/ cachectic, refusal of medications and oral intake, multiple ongoing psychiatric and medical comorbidities, progressive clinical decline and physical deconditioning. Discussed PICC to in the setting of decreased oral intake. Brother tells me that patient had a PEG tube in the past when he also refused to eat secondary to psychiatric condition. Discussed CPR, intubation and mechanical ventilation given patient's clinical condition. Brother tells me that patient has verbalized in the past not wanting to be on any form of life support. Brother requesting full code at this time while he discusses CODE STATUS and goals of care with additional siblings. Goal of therapy at this time is to allow time to maximize his medical and psychiatric management. Brother receptive to continue goals of care discussion. . Function/Cognitive Trajectory Patient resident of long-term facility for the past year and a half. Jesus NATION reports that patient was ambulating with assistance a month ago, he was able to feed himself and required assistance with ADLs. No dysphagia reported. Clinical decline for the past 3 weeks, patient with increased paranoia refusing meals and medications. Worsening over the week prior to presented to ED. . Review of Systems ROS Limitations: Altered Mental Status, Combative, Psychotic Constitutional: COMPLAINS OF: Change in appetite Cardiovascular: DENIES: Lower Extremity Edema Gastrointestinal: DENIES: Vomiting Hematologic/Lymphatics: COMPLAINS OF: Bruising Immunologic/Allergic: DENIES: Eczema Neurologic: COMPLAINS OF: Tremor, Poor Balance Psychiatric: COMPLAINS OF: Anxiety, Confusion, Mood changes, Agitation Other ROS: Limited ROS secondary to patient's clinical condition, paranoid schizophrenia. Agitated on 4 point restraint during my visit, nonverbal. ROS obtained from clinical observation and medical records. Past Family Social History Coded Allergies: COLT Inhibitors (Verified Allergy, Unknown, 04/17/17) Past Medical History Paranoid schizophrenia Parkinson's disease Dementia Anxiety Depression Hypertension Hyperlipidemia GERD History of multiple psychiatric hospitalizations . Past Surgical History Unable to obtain at this time secondary to patient's clinical condition. . Reported Medications [Abh Gel] 1 Applic TOPICAL QID Zoloft (Sertraline HCl) 100 Mg Tab 150 Mg PO DAILY Zocor (Simvastatin) 10 Mg Tab 10 Mg PO DAILY Ranitidine 75 (Ranitidine HCl) 75 Mg Tab 75 Mg PO DAILY Mapap (Acetaminophen) 325 Mg Tab 650 Mg PO Q4HR PRN Seroquel (Quetiapine Fumarate) 50 Mg Tab 50 Mg PO BID Seroquel (Quetiapine Fumarate) 200 Mg Tab 200 Mg PO HS Miralax Powder (Polyethylene Glycol 3350 Powder) 17 Gm Powd 17 Gm PO DAILY Ropinirole 0.25 Mg Tab 0.25 Mg PO Q8HR Amlodipine (Amlodipine Besylate) 5 Mg Tab 5 Mg PO DAILY Ibuprofen 400 Mg Tab 400 Mg PO Q6H PRN Colace (Docusate Sodium) 100 Mg Capsule 100 Mg PO DAILY [Abh Gel] 1 Applic TOPICAL Q6HR PRN Clozapine 25 Mg Tab 25 Mg PO BID Clozaril (Clozapine) 100 Mg Tab 300 Mg PO HS Sinemet (Carbidopa-Levodopa) 25-100 Mg Tab 1 Tab PO TID Aspirin 81 (Aspirin) 81 Mg Tabdr 81 Mg PO DAILY . Current Medications Medications (Trade) Dose Ordered Sig/Kimberly Route Start Time Stop Time Status Last Admin (NS Flush) 2 ml UNSCH PRN IV FLUSH 04/17/17 16:45 (NS Flush) 2 ml BID IV FLUSH 04/17/17 21:00 04/18/17 09:00 (Tylenol) 650 mg Q4H PRN PO 04/17/17 17:00 (Zofran Inj) 4 mg Q6HR PRN IVP 04/17/17 18:00 (Compazine Supp) 25 mg Q12HR PRN RECTAL 04/17/17 21:00 (Lovenox Inj) 30 mg Q24H SQ 04/17/17 18:00 04/18/17 17:48 (Narcan Inj) 0.4 mg UNSCH PRN IV 04/17/17 16:45 (Kasandra-Colace) 1 tab BID PO 04/17/17 21:00 (Milk Of Magnesia Liq) 30 ml Q12H PRN PO 04/17/17 16:45 (Senokot) 17.2 mg Q12H PRN PO 04/17/17 16:45 (Dulcolax Supp) 10 mg DAILY PRN RECTAL 04/17/17 16:45 Lactulose 30 ml 30 ml DAILY PRN PO 04/17/17 16:45 Fluconazole/ Sodium Chloride 50 ml @ 50 mls/hr Q24H IV 04/17/17 17:00 04/18/17 17:49 (D5W 1000 ml Inj) 1,000 ml @ 84 mls/hr [id number] IV 04/18/17 11:15 04/19/17 11:05 (Haldol Inj) 5 mg Q4H PRN IM 04/19/17 14:00 04/19/17 12:38 (SEROquel) 100 mg BID PO 04/19/17 21:00 Family History Unable to obtain secondary to patient's mental status. Parents are both . Patient has one son who is alive and well. . Substance Use Tobacco: None reported. Alcohol: None reported. Prescription med abuse: None reported. Illicits: None reported. . Psychosocial History Patient originally from [facility]. Resident of long-term facility for the past 4-5 years. Patient is single, he has one estranged son by the same name who resides in [place]. Patient has 3 siblings. Patient worked until age 53 at an [employer] operating [employer] until he began presenting with paranoia and "had a mental break down" . Spiritual/Cultural Factors No zoroastrianism affiliation. . Living Will: Never completed Health Care Surrogate: Never completed Durable Power of Self [employer]er: Never completed Health Care Surrogate(s): No advance directives completed. As per [place] law, healthcare proxy decision- making falls to patient's only son vs majority of siblings, for which patient has 3. . Family/friends goals: Full code. Pending contact information of patient's son. . Ethical and Legal Issues Patient unable to participating in medical decision-making, lacks capacity. Pending identification of proxy decision maker. . Physical Exam Vital Signs Date Time Temp Pulse Resp B/P Pulse Ox O2 Delivery O2 Flow Rate FiO2 04/19/17 12:00 116 127/71 04/19/17 08:00 151 140/82 04/19/17 00:00 18 122/70 04/18/17 20:00 97.9 84 18 119/75 95 04/18/17 16:01 97.0 77 20 112/69 95 04/18/17 04/19/17 19:00 07:00 Intake Total 1329 ml Output Total 0 ml Balance 1329 ml Intake Oral 0 ml IV Total 1329 ml Output Urine Total 0 ml # Voids 1 1 # Bowel Movements 0 Exam CONSTITUTIONAL/GENERAL: This is an pale, cachectic elderly man in bed, 4 point restraint. Restless/agitated with any interaction. TUBES/LINES/DRAINS: PIV to left upper arm, soft wrist and ankle restraints. SKIN: No jaundice, rashes, or lesions. Pale, small areas of ecchymosis and scabs to right elbow. Skin temperature appropriate. Not diaphoretic. HEAD: Atraumatic. Normocephalic. Bilateral temporal wasting noted. EYES: Unable to assess, Eyes closed. Patient did not cooperate with physical exam. ENT: Hearing appears normal. Nose without bleeding or purulent drainage. Tongue with white coating, thrush. NECK: Trachea midline. Supple. CARDIOVASCULAR: Regular rate and rhythm. Peripheral pulses symmetric. RESPIRATORY/CHEST: Symmetric, increased work of breathing with agitation. Clear , diminished to auscultation. GASTROINTESTINAL: Abdomen soft, non-tender, nondistended. Bowel sounds present. GENITOURINARY: Without palpable bladder distension. MUSCULOSKELETAL: Extremities without clubbing, cyanosis, or edema. Generalize muscle atrophy to all 4 extremities. NEUROLOGICAL: Not communicating. Moving all 4 extremities. Tremor noted on movement to bilateral hands. PSYCHIATRIC: Restless/agitated. . Diagnostic Tests Laboratory Laboratory Tests Test 04/17/17 04/17/17 04/18/17 04/18/17 14:05 15:20 04:40 19:02 White Blood Count 8.0 TH/MM3 6.4 TH/MM3 (4.0-11.0) (4.0-11.0) Red Blood Count 5.12 MIL/MM3 4.80 MIL/MM3 (4.50-5.90) (4.50-5.90) Hemoglobin 15.9 GM/DL 14.8 GM/DL (13.0-17.0) (13.0-17.0) Hematocrit 46.2 % 43.1 % (39.0-51.0) (39.0-51.0) Mean Corpuscular Volume 90.3 FL 89.8 FL (80.0-100.0) (80.0-100.0) Mean Corpuscular Hemoglobin 31.0 PG 30.9 PG (27.0-34.0) (27.0-34.0) Mean Corpuscular Hemoglobin 34.4 % 34.4 % Concent (32.0-36.0) (32.0-36.0) Red Cell Distribution Width 13.3 % 12.9 % (11.6-17.2) (11.6-17.2) Platelet Count 181 TH/MM3 184 TH/MM3 (150-450) (150-450) Mean Platelet Volume 8.7 FL 9.1 FL (7.0-11.0) (7.0-11.0) Neutrophils (%) (Auto) 75.8 % 70.6 % (16.0-70.0) (16.0-70.0) Lymphocytes (%) (Auto) 14.6 % 18.6 % (9.0-44.0) (9.0-44.0) Monocytes (%) (Auto) 8.8 % (0.0-8.0) 9.2 % (0.0-8.0) Eosinophils (%) (Auto) 0.3 % (0.0-4.0) 0.8 % (0.0-4.0) Basophils (%) (Auto) 0.5 % (0.0-2.0) 0.8 % (0.0-2.0) Neutrophils # (Auto) 6.1 TH/MM3 4.6 TH/MM3 (1.8-7.7) (1.8-7.7) Lymphocytes # (Auto) 1.2 TH/MM3 1.2 TH/MM3 (1.0-4.8) (1.0-4.8) Monocytes # (Auto) 0.7 TH/MM3 0.6 TH/MM3 (0-0.9) (0-0.9) Eosinophils # (Auto) 0.0 TH/MM3 0.1 TH/MM3 (0-0.4) (0-0.4) Basophils # (Auto) 0.0 TH/MM3 0.1 TH/MM3 (0-0.2) (0-0.2) CBC Comment DIFF FINAL DIFF FINAL Differential Comment Prothrombin Time 13.1 SEC (9.8-11.6) Prothromb Time International 1.2 RATIO Ratio Activated Partial 26.6 SEC Thromboplast Time (24.3-30.1) Sodium Level 154 MEQ/L 155 MEQ/L 151 MEQ/L (136-145) (136-145) (136-145) Potassium Level 4.0 MEQ/L 4.0 MEQ/L (3.5-5.1) (3.5-5.1) Chloride Level 116 MEQ/L 119 MEQ/L (98-107) (98-107) Carbon Dioxide Level 27.6 MEQ/L 29.4 MEQ/L (21.0-32.0) (21.0-32.0) Anion Gap 10 MEQ/L (5-15) 7 MEQ/L (5-15) Blood Urea Nitrogen 38 MG/DL (7-18) 31 MG/DL (7-18) Creatinine 1.04 MG/DL 0.96 MG/DL (0.60-1.30) (0.60-1.30) Estimat Glomerular Filtration 71 ML/MIN (>89) 77 ML/MIN (>89) Rate Random Glucose 87 MG/DL 119 MG/DL (74-106) (74-106) Lactic Acid Level 1.1 mmol/L (0.4-2.0) Calcium Level 8.8 MG/DL 8.7 MG/DL (8.5-10.1) (8.5-10.1) Total Bilirubin 0.8 MG/DL 0.7 MG/DL (0.2-1.0) (0.2-1.0) Aspartate Amino Transf 22 U/L (15-37) 23 U/L (15-37) (AST/SGOT) Alanine Aminotransferase 18 U/L (12-78) 18 U/L (12-78) (ALT/SGPT) Alkaline Phosphatase 90 U/L (45-117) 80 U/L (45-117) Total Creatine Kinase 331 U/L (39-308) Creatine Kinase MB 1.2 NG/ML (0.5-3.6) Creatine Kinase MB % 0.4 % (0.0-4.0) Troponin I LESS THAN 0.02 NG/ML (0.02-0.05) Total Protein 6.5 GM/DL 6.2 GM/DL (6.4-8.2) (6.4-8.2) Albumin 3.5 GM/DL 3.2 GM/DL (3.4-5.0) (3.4-5.0) Urine Color YELLOW (YELLW/STRAW) Urine Turbidity CLEAR (CLEAR) Urine pH 5.5 (5.0-8.5) Urine Specific [place] 1.034 (1.002-1.035) Urine Protein 30 mg/dL (NEG-TRACE) Urine Glucose (UA) NEG mg/dL (NEG) Urine Ketones 40 mg/dL (NEG) Urine Occult Blood NEG (NEG) Urine Nitrite NEG (NEG) Urine Bilirubin NEG (NEG) Urine Urobilinogen 2.0 MG/DL (LESS THAN 2.0) Urine Leukocyte Esterase NEG (NEG) Urine RBC LESS THAN 1 /hpf (0-3) Urine WBC 1 /hpf (0-5) Urine Mucus FEW /lpf (OCC) Microscopic Urinalysis Comment CATH-CULT NOT IND Hemoglobin A1c 5.0 % (4.3-6.0) Phosphorus Level 2.3 MG/DL (2.5-4.9) Magnesium Level 2.5 MG/DL (1.5-2.5) Free Thyroxine 1.00 NG/DL (0.76-1.46) Thyroid Stimulating Hormone 1.150 uIU/ML 3rd Gen (0.358-3.740) Test 04/19/17 06:07 Sodium Level 153 MEQ/L (136-145) Potassium Level 4.4 MEQ/L (3.5-5.1) Chloride Level 116 MEQ/L (98-107) Carbon Dioxide Level 30.3 MEQ/L (21.0-32.0) Anion Gap 7 MEQ/L (5-15) Blood Urea Nitrogen 28 MG/DL (7-18) Creatinine 1.20 MG/DL (0.60-1.30) Estimat Glomerular Filtration 60 ML/MIN (>89) Rate Random Glucose 81 MG/DL (74-106) Calcium Level 9.3 MG/DL (8.5-10.1) Result Diagram: 04/18/17 0440 04/19/17 0607 Microbiology Microbiology Date/Time Procedure Status Source Growth 04/17/17 14:05 Aerobic Blood Culture - Preliminary Resulted Blood Peripheral Staph Sp Coagulase Negative 04/17/17 14:05 Anaerobic Blood Culture - Preliminary Resulted Blood Peripheral NO GROWTH IN 2 DAYS 04/17/17 15:15 Aerobic Blood Culture - Preliminary Resulted Blood Peripheral NO GROWTH IN 2 DAYS 04/17/17 15:15 Anaerobic Blood Culture - Preliminary Resulted Blood Peripheral NO GROWTH IN 2 DAYS Imaging Last Impressions Head CT 04/17/17 140 Signed Impressions: Service Date/Time: Monday, April 17, 2017 15:39 - CONCLUSION: Negative for an acute process. Oneil Rae MD FACR Chest X-Ray 04/17/171401 Signed Impressions: Service Date/Time: Monday, April 17, 2017 14:36 - CONCLUSION: No acute disease. Wing Rivera MD Patient/Family Conference Present at Family Conference: John Family Conference Time (mins): 35 Family Conference Location: Telephone Issues Discussed: * Palliative care role, purpose, approach * Additional medical, psychosocial, and spiritual history * Patients general health, functional status, and cognitive changes in the months leading up to the current hospitalization * Family understanding of the current medical problems -decreased oral intake, physical deconditioning, failure to thrive, paranoid schizophrenia, anxiety, depression. * Family understanding of prognosis -patient no very high risk for further complications, continue decline and given the above. * Patients goals of care as best understood from advance directives and/or conversations and/or values * Current medical treatment options and benefits/burdens of those options * Questions answered to the best of my ability * Palliative care contact information provided * Risks, benefits and limitations of CPR * Risks, benefits and limitations of PEG tube . Assessment and Plan Disease Oriented Problem List: (1) Failure to thrive in adult (2) Paranoid schizophrenia (3) Dehydration (4) Cachexia (5) Dementia (6) Physical deconditioning Symptom Scale: (1) Decreased oral intake 0-10 Scale: Unable to quantify Comment: Progressive over the past 3 weeks. Worsened for the past 7 days. (2) Debility 0-10 Scale: Unable to quantify Comment: Progressive. Receiving a long-term facility for the past 4-5 years. Pertinent Non-Medical Issues Psychosocial: Patient originally from [facility]. Resident of long- term facility for the past 4-5 years. Patient is single, he has one estranged son by the same name who resides in [place]. Patient has 3 siblings. Patient worked until age 53 at an [employer] operating [employer] until he began presenting with paranoia and "had a mental break down" . Spiritual: No zoroastrianism affiliation. Legal: No advance directives completed. Ethical issues impacting care: Patient unable to participating in medical decision-making, lacks capacity. Pending identification of proxy decision maker. Important Contacts Brother John Ta son Cedric Ta -pending contact information. . Prognosis Mr. Ta is a 71-year-old male with a medical history significant for Parkinson's disease, paranoid schizophrenia, depression, GERD and hypertension. Patient presented from long-term facility for evaluation of altered mental status and decreased oral intake for the previous 5 days. Long-term facility reporting clinical decline for the previous 3 weeks. Patient at high risk for further complications, continue decline and given his debilitated state/ failure to thrive/cachectic, refusal of medications and oral intake, multiple ongoing psychiatric and medical comorbidities, progressive clinical decline and physical deconditioning. Overall poor prognosis. . Code Status: Full Code Plan * CODE STATUS: FULL CODE. Discussed CPR, intubation and mechanical ventilation with brother given patient's clinical condition. Brother tells me that patient has verbalized in the past not wanting to be on any form of life support. Brother requesting full code at this time while he discusses CODE STATUS and goals of care with additional siblings. * MEDICAL DECISION-MAKING: Patient incapacitated for medical decision-making secondary to psychiatric condition -paranoid schizophrenia. Determination of capacity completed by patient's primary care provider, Dr. Bates on 02/24/15. Not likely to regain capacity. No advance directives completed. Brother John has been serving as patients medical decision maker, states he has a health care proxy designation form from [facility] and will fax over to palliative care. It should be noted patient has a son and as per [place] Statutes legal proxy decision making would fall to patient's son first, if he was unwilling or unable to participate then proxy decision making would fall to the majority of patient's siblings in which he has 3 living siblings. Palliative care attempting to contact son, pending [employer] report. * GOALS OF CARE: Goal of therapy at this time is to allow time to maximize his medical and psychiatric management. Family to consider PEG tube placement if patient is unable to meet his caloric needs via oral intake. * Telephone conversation with patient's brother's John Ta. Brother tells me that he has been serving as proxy decision maker for over 20 years. Share concerns of patient's clinical condition and high risk for further complications , continue decline and given his debilitated state/failure to thrive/ cachectic, refusal of medications and oral intake, multiple ongoing psychiatric and medical comorbidities, progressive clinical decline and physical deconditioning. Discussed PEG tube in the setting of decreased oral intake. Brother tells me that patient had a PEG tube in the past when he also refused to eat secondary to psychiatric condition. Discussed risks, benefits and limitations of PEG tube given patient's extensive psychiatric condition. Brother receptive to continue goals of care discussion. * SYMPTOMS: = Decreased oral intake secondary to paranoid. Patient with reported decreased oral intake for the past 3 weeks, worsen for the past 7 days. Patient refusing oral intake and medications. Psych following, patient restarted on Seroquel. History of PEG tube placement in the past. = Debility, progressive. Resident of long-term facility for the past 4-5 years. Requiring assistance with ADL's. Likely to continue to worsen. * Case has been discussed with bedside RN Blanca. * Palliative care contact information has been provided to patient's brother John. * Palliative acre will continue to f/u for further clarification of goals of care as patient's clinical course continues to evolve. . Time Spent Total Floor Time (mins): 68 (Total time to include review and summarization of available medical records, physical exam, telephone conversation with patient's brother John for goals of care discussion and case review with bedside RN Blanca. ) >50% Counseling/Coord of Care: Yes Thank you for the opportunity to participate in the care of Mr. Ta. Attestation To help prompt me to consider important information that might be impacting today's encounter and assessment, information from prior notes written by myself or my colleagues may have been "brought forward" into today's note. My signature on this note, however, is an attestation that I personally performed the exam, history, and/or decision-making noted today, and, unless otherwise indicated, the interactions with patient, family, and staff as well as the review of records all occurred today. I also attest that the listed assessment and stated plan reflect my best clinical judgment today based on the combination of historical information, prior notes, and today's exam/ interactions. When time spent is documented, it refers only to time spent today by the signer, or if indicated, combined time spent today by collaborating physician/nurse practitioner. Felicia Mcmullen Apr 19, 2017 15:27
[2017-04-19 16:00] VITALS: BP 123/68; PULSE 96
[2017-04-19] MEDS: FLUCONAZOLE 100 MG PREMIX BAG 50 ML IV SCH (16:07)
[2017-04-19] MEDS: ENOXAPARIN SODIUM 30 MG/0.3 ML SYRINGE SQ SCH (16:07)
[2017-04-19 20:04] VITALS: BP 151/76; PULSE 94; RESP 17; TEMP 96.2; O2SAT 96
[2017-04-19] MEDS: QUEtiapine FUMARATE 100 MG TAB PO SCH (21:15)
[2017-04-20 00:07] VITALS: BP 130/70; PULSE 97; RESP 18; TEMP 96.2; O2SAT 96
[2017-04-20] MEDS: DEXTROSE 5% IN WATE 1000ML INJ 1,000 ML IV SCH ×2 (01:36→11:08)
[2017-04-20] MEDS: SODIUM CHLORIDE 0.9% FLUSH 10 ML FLUSH IV FLUSH SCH ×2 (07:43→21:00)
[2017-04-20] MEDS: QUEtiapine FUMARATE 100 MG TAB PO SCH ×2 (07:44→21:00)
[2017-04-20] MEDS: DOCUSATE SODIUM 50 MG/SENNA 8.6 MG TAB PO SCH ×2 (07:44→21:00)
[2017-04-20 08:00] VITALS: BP 128/72; PULSE 96; RESP 16; TEMP 98.4; O2SAT 96
--- NOTE | 2017-04-20 09:00 | HHI.PR ---
Subjective Remarks Follow up for dementia, poor oral intake. Patient is somewhat calm today. No meaningful communications. Still requiring 4 point restraints. Objective Vitals Vital Signs Date Time Temp Pulse Resp B/P Pulse Ox O2 Delivery O2 Flow Rate FiO2 04/20/17 08:00 98.4 96 16 128/72 96 04/20/17 00:07 96.2 97 18 130/70 96 04/19/17 20:04 96.2 94 17 151/76 96 04/19/17 16:00 96 123/68 04/19/17 12:00 116 127/71 I/O 04/19/17 04/19/17 04/19/17 04/20/17 04/20/17 04/20/17 06:59 14:59 22:59 06:59 14:59 22:59 Intake Total 0 ml 0 ml 802 ml 574 ml Balance 0 ml 0 ml 802 ml 574 ml Intake Oral 0 ml 0 ml 120 ml IV Total 682 ml 574 ml # Voids 1 3 1 2 # Bowel Movements 0 Result Diagram: 04/18/17 0440 04/19/17 0607 Objective Remarks GENERAL: Sleepy, opens eyes on verbal commands, NAD. SKIN: Warm and dry. HEAD: Normocephalic. EYES: No scleral icterus. No injection or drainage. NECK: Supple, trachea midline. No JVD or lymphadenopathy. CARDIOVASCULAR: Regular rate and rhythm without murmurs, gallops, or rubs. RESPIRATORY: Breath sounds equal bilaterally. No accessory muscle use. GASTROINTESTINAL: Abdomen soft, non-tender, nondistended. MUSCULOSKELETAL: No cyanosis, or edema. BACK: Nontender without obvious deformity. No CVA tenderness. Procedures None. A/P Problem List: (1) Failure to thrive in adult ICD Code: R62.7 Status: Acute (2) Altered mental status, unspecified ICD Code: R41.82 Status: Acute (3) Dehydration ICD Code: E86.0 Status: Acute (4) Hypercalcemia ICD Code: E83.52 Status: Acute (5) Schizophrenia ICD Code: F20.9 Status: Chronic (6) Dementia ICD Code: F03.90 Status: Chronic (7) GERD (gastroesophageal reflux disease) ICD Code: K21.9 Status: Chronic (8) HTN (hypertension) ICD Code: I10 Status: Chronic (9) Oral thrush ICD Code: B37.0 Status: Acute Assessment and Plan This is a 71-year-old male patient sent from a local half-way facility with past medical history which includes dementia, schizophrenia, depression, hypertension, hyperlipidemia and GERD. Patient was sent to the emergency department because he has not poor by mouth intake for the past 5 days. According to review of half-way facility records patient has had a decline over the past 3 weeks. At this point patient is non-verbal and unable to follow commands therefore information gathered from physical exam as well as review of prior computerized charting and half-way facility documentation. Patient appears cachectic, dehydrated and smells of urine. Poor by mouth intake Altered mental status Dehydration Hypernatremia Patient has received 1 L NS fluid bolus emergency department Discontinue D51/2NS and KCL at 100ml/hour. Patient has significant free water deficit. Na 154 --> 155. Patient was on D5W @84cc/hour. Na 155 --> 151. However, due to lack of IV access, he is not receiving any fluid. Na increased from 151 --> 153. IV access was obtained later and per RN, D5W was re-started. BMP pending this AM CT of the head reviewed no acute process identified CXR no acute disease process UA reviewed no culture indicated Serial neuro checks Consulted speech - recommends NPO. Possible oral thrush- patient refusing by mouth medications Diflucan 100 mg IV daily Dementia Schizophrenia Depression Acute agitation - Psychiatry consult pending. Patient would benefit from scheduled anti- psychotics. - Will keep Haldol IM available PRN. - Palliative care was consulted. Appreciate Palliative care input - they talked to patient's brother. - Psychiatry recommendations appreciated. Continue Seroquel and Haldol. Hypertension - Currently normotensive. No acute issues. Hyperlipidemia - Continue to hold. If PO intake improves, will re-start home meds. Full code. Lovenox. Problem Qualifiers (1) Altered mental status, unspecified: Qualified Code: R41.82 - Altered mental status, unspecified altered mental status type Rafael Guzmán DO Apr 20, 2017 9:00 am
--- NOTE | 2017-04-20 10:24 | HHI.HCPN ---
Results received from [employer]. Following information found: FOUND A LENORA HERMAN JR~ (AGE 33) [phone] (PHONE IN HIS NAME)-- this is the number attempted multiple times yesterday and today. No answer and no voicemail. Received proxy paperwork from patient's brother John designating him as health care proxy decision maker by the facility, [facility]. However, we have recently learned there are other siblings. Palliative care to attempt to speak with other siblings to see if they wish to participate in medical proxy decision making as per [place] Statutes it falls to the majority of siblings since son is unreachable/unable to locate and parents are . Mariah Mohamud MSW, ACQUISITION PROFESSIONAL Apr 20, 2017 10:24
[2017-04-20 12:00] VITALS: BP 138/63; PULSE 89; RESP 17; TEMP 97.8; O2SAT 97
[2017-04-20 15:23] LABS: BICARBONATE 31.1 MEQ/L (21.0-32.0); POTASSIUM 3.3 MEQ/L (3.5-5.1)
[2017-04-20 16:00] VITALS: BP 132/76; PULSE 86; RESP 16; TEMP 98.3; O2SAT 97
--- NOTE | 2017-04-20 16:04 | HHI.HCPN ---
Reason for visit a. To assist with evaluation and management of symptoms including: Decreased oral intake and debility. b. To assist medical decision maker(s) with: better understanding of current medical conditions; weighing benefits/burdens of medical treatment options; making medical treatment decisions. . Subjective/Interval History Mr. Torres is a 71-year-old male with a medical history significant for Parkinson's disease, paranoid schizophrenia, depression, GERD and hypertension. Patient presented from long-term facility for evaluation of altered mental status and decreased oral intake for the previous 5 days. Long-term facility reporting clinical decline for the previous 3 weeks. Patient arrived nonverbal , limited history. CT of the head negative for acute process. Patient was admitted for further management of altered mental status, dehydration and failure to thrive. Patient with worsening clinical condition as evidenced by increased agitation/paranoia requiring 4-point restraint. Palliative care was consulted for further clarifications of goals of care and assistance with healthcare proxy decision maker. Patient seen in medical floor. He was laying in bed in no acute distress. Remains on 4 point restraint. Patient with eyes open, not tracking. No follow any commands or attempting to communicate. Patient pale, cachectic. Discussed case with bedside RN Blanca. Patient with no oral intake for the past few days. He was declining oral medications. Has been seen by speech therapy who recommended nothing by mouth given his mental status/obtunded. Discussed case in great detail with psychiatry, Dr. Escobedo. Patient with extensive psychiatric history to include paranoid schizophrenia, dementia, anxiety, depression requiring multiple psychiatric hospitalizations, state hospitalizations and history of ECT. Patient with worsening agitation/pacing, eating poorly and sleep disturbances worsened 4 weeks prior to ED arrival. Seroquel was restarted yesterday for behavioral control and psychosis. Discussed patient's clinical condition with Dr. Escobedo and Dr. Guzmán . Reviewed benefits, risks and limitations of PEG tube/artificial nutrition as a mean to maximize patient's medical and psychiatric management. Patient severely debilitated, cachectic. Concern of patient's current clinical condition vs psychiatric history. Patient's condition not likely reversible given multiple ongoing chronic comorbidities, profound debilitated state/ physical deconditioning, cachexia, malnutrition with very limited oral intake for the past 3 weeks. Overall prognosis very poor for meaningful recovery. Patient hospice appropriate should family elects comfort-directed care. Phone conversation with patient's brother John and sister Gunjan Welch. Medical update provided. Discussed overall poor prognosis for meaningful recovery given the above. Discussed risks, benefits and limitations of PEG tube /artificial nutrition. Discussed risks, benefits and limitations CPR, intubation and mechanical ventilation given patient's condition. Family tells me that patient's progressive decline has been reporting for the past 4-5 years. Sister verbalizes expecting worsening of pt's clinical status. Both brother John and sister Gunjan electing to change patient's CODE STATUS from full code to DNR/DNI. Discussed continuation of conservative management vs. Transition patient to comfort-directed care with hospice given his worsening clinical condition and poor prognosis. Brother Cedric to visit patient tomorrow afternoon. Family leaning towards comfort directed care. Dr. Guzmán notified. . Family/friend interactions See interval note. . Advance Directives Living Will: Never completed Health Care Surrogate: Never completed Durable Power of Portable Power Tool Repairer: Never completed Advance Directive Specifics Health Care Surrogate(s): No advance directives completed. As per [place] law, healthcare proxy decision- making falls to patient's only son vs majority of siblings, for which patient has 3. . Significant change in goals: DNR/DNI. Family likely to transition patient to comfort-directed care. Objective Vital Signs Date Time Temp Pulse Resp B/P Pulse Ox O2 Delivery O2 Flow Rate FiO2 04/20/17 12:00 97.8 89 17 138/63 97 04/20/17 08:00 98.4 96 16 128/72 96 04/20/17 00:07 96.2 97 18 130/70 96 04/19/17 20:04 96.2 94 17 151/76 96 04/19/17 16:00 96 123/68 Intake & Output 04/20/17 04/20/17 07:00 19:00 Intake Total 1376 ml 755 ml Output Total 200 ml Balance 1376 ml 555 ml Intake Oral 120 ml 0 ml IV Total 1256 ml 755 ml Output Urine Total 200 ml # Voids 3 # Bowel Movements 0 Physical Exam CONSTITUTIONAL/GENERAL: This is an pale, cachectic elderly man in bed, 4 point restraint. Eyes open, not tracking. Not interactive. TUBES/LINES/DRAINS: PIV to left upper arm, soft wrist and ankle restraints. SKIN: No jaundice, rashes, or lesions. Very pale, small areas of ecchymosis and scabs to right elbow. Skin temperature appropriate. Not diaphoretic. HEAD: Atraumatic. Normocephalic. Bilateral temporal wasting noted. EYES: Unable to assess, Eyes closed. Patient did not cooperate with physical exam. ENT: Unable to evaluate hearing secondary to clinical status. Nose without bleeding or purulent drainage. Tongue with white coating, thrush. NECK: Trachea midline. Supple. CARDIOVASCULAR: Regular rate and rhythm. Peripheral pulses symmetric. RESPIRATORY/CHEST: Symmetric, increased work of breathing with agitation. Clear , diminished to auscultation. GASTROINTESTINAL: Abdomen soft, non-tender, nondistended. Bowel sounds present. GENITOURINARY: Without palpable bladder distension. MUSCULOSKELETAL: Extremities without clubbing, cyanosis, or edema. Generalize muscle atrophy to all 4 extremities. NEUROLOGICAL: Not communicating. Eyes open, not tracking. Nonverbal during my visit. PSYCHIATRIC: Periods of restlessness/agitation. . Diagnostic Tests Laboratory Laboratory Tests Test 04/18/17 04/18/17 04/19/17 04/20/17 04:40 19:02 06:07 14:13 White Blood Count 6.4 TH/MM3 (4.0-11.0) Red Blood Count 4.80 MIL/MM3 (4.50-5.90) Hemoglobin 14.8 GM/DL (13.0-17.0) Hematocrit 43.1 % (39.0-51.0) Mean Corpuscular Volume 89.8 FL (80.0-100.0) Mean Corpuscular Hemoglobin 30.9 PG (27.0-34.0) Mean Corpuscular Hemoglobin 34.4 % Concent (32.0-36.0) Red Cell Distribution Width 12.9 % (11.6-17.2) Platelet Count 184 TH/MM3 (150-450) Mean Platelet Volume 9.1 FL (7.0-11.0) Neutrophils (%) (Auto) 70.6 % (16.0-70.0) Lymphocytes (%) (Auto) 18.6 % (9.0-44.0) Monocytes (%) (Auto) 9.2 % (0.0-8.0) Eosinophils (%) (Auto) 0.8 % (0.0-4.0) Basophils (%) (Auto) 0.8 % (0.0-2.0) Neutrophils # (Auto) 4.6 TH/MM3 (1.8-7.7) Lymphocytes # (Auto) 1.2 TH/MM3 (1.0-4.8) Monocytes # (Auto) 0.6 TH/MM3 (0-0.9) Eosinophils # (Auto) 0.1 TH/MM3 (0-0.4) Basophils # (Auto) 0.1 TH/MM3 (0-0.2) CBC Comment DIFF FINAL Differential Comment Sodium Level 155 MEQ/L 151 MEQ/L 153 MEQ/L 148 MEQ/L (136-145) (136-145) (136-145) (136-145) Potassium Level 4.0 MEQ/L 4.4 MEQ/L 3.3 MEQ/L (3.5-5.1) (3.5-5.1) (3.5-5.1) Chloride Level 119 MEQ/L 116 MEQ/L 111 MEQ/L (98-107) (98-107) (98-107) Carbon Dioxide Level 29.4 MEQ/L 30.3 MEQ/L 31.1 MEQ/L (21.0-32.0) (21.0-32.0) (21.0-32.0) Anion Gap 7 MEQ/L (5-15) 7 MEQ/L (5-15) 6 MEQ/L (5-15) Blood Urea Nitrogen 31 MG/DL (7-18) 28 MG/DL (7-18) 25 MG/DL (7-18) Creatinine 0.96 MG/DL 1.20 MG/DL 1.10 MG/DL (0.60-1.30) (0.60-1.30) (0.60-1.30) Estimat Glomerular Filtration 77 ML/MIN (>89) 60 ML/MIN (>89) 66 ML/MIN (>89) Rate Random Glucose 119 MG/DL 81 MG/DL 136 MG/DL (74-106) (74-106) (74-106) Hemoglobin A1c 5.0 % (4.3-6.0) Calcium Level 8.7 MG/DL 9.3 MG/DL 8.6 MG/DL (8.5-10.1) (8.5-10.1) (8.5-10.1) Phosphorus Level 2.3 MG/DL (2.5-4.9) Magnesium Level 2.5 MG/DL (1.5-2.5) Total Bilirubin 0.7 MG/DL (0.2-1.0) Aspartate Amino Transf 23 U/L (15-37) (AST/SGOT) Alanine Aminotransferase 18 U/L (12-78) (ALT/SGPT) Alkaline Phosphatase 80 U/L (45-117) Total Protein 6.2 GM/DL (6.4-8.2) Albumin 3.2 GM/DL (3.4-5.0) Free Thyroxine 1.00 NG/DL (0.76-1.46) Thyroid Stimulating Hormone 1.150 uIU/ML 3rd Gen (0.358-3.740) Result Diagram: 04/18/17 0440 04/20/17 1413 Assessment and Plan Disease Oriented Problem List: (1) Failure to thrive in adult (2) Paranoid schizophrenia (3) Dehydration (4) Cachexia (5) Dementia (6) Physical deconditioning Symptom Scale: (1) Decreased oral intake 0-10 Scale: Unable to quantify Comment: Progressive over the past 3 weeks. Worsened for the past 7 days. (2) Debility 0-10 Scale: Unable to quantify Comment: Progressive. Receiving a long-term facility for the past 4-5 years. Pertinent Non-Medical Issues Psychosocial: Patient originally from [facility]. Resident of long- term facility for the past 4-5 years. Patient is single, he has one estranged son by the same name who resides in [place]. Patient has 3 siblings. 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 Spiritual: No alevism affiliation. Legal: No advance directives completed. Ethical issues impacting care: Patient unable to participating in medical decision-making, lacks capacity. Pending identification of proxy decision maker. Important Contacts Brother John Torres Only son Cedric Torres -unable to reach. [employer] report Secured. Sister Gunjan Welch . She resides in [place]. Brother Gregorio Torres . He resides in [place]. . Prognosis Mr. Torres is a 71-year-old male with a medical history significant for Parkinson's disease, paranoid schizophrenia, depression, GERD and hypertension. Patient presented from long-term facility for evaluation of altered mental status and decreased oral intake for the previous 5 days. Long-term facility reporting clinical decline for the previous 3 weeks. Patient at high risk for further complications, continue decline and given his debilitated state/ failure to thrive/cachectic, refusal of medications and oral intake, multiple ongoing psychiatric and medical comorbidities, progressive clinical decline and physical deconditioning. Overall poor prognosis. . Code Status: No Code Plan * CODE STATUS: 04/20/17. Brother John and sister Gunjan electing to change pt' s code status to DNR/DNI. * MEDICAL DECISION-MAKING: Patient incapacitated for medical decision-making secondary to psychiatric condition -paranoid schizophrenia. Determination of incapacity completed by patient's primary care provider, Dr. Bates on 02/24/15. Not likely to regain capacity. No advance directives completed. Brothpanchito Lopez has been serving as patients medical decision maker, Health care proxy designation form from [facility] provided. It should be noted patient has a son and as per [place] Statutes legal proxy decision making would fall to patient's son first, However, son has been unable to be located (see Palliative Care SW notes). In this setting, then proxy decision making would fall to the majority of patient's siblings in which he has 3 living siblings. * GOALS OF CARE: Siblings declining PEG tube/artificial nutrition at this time, they feel that is not in patient's best interest given progressive decline and overall poor prognosis. Family likely to transition patient to comfort-directed care with hospice. Patient's brother John to visit patient on 04/21/17 at 3:00 PM. Palliative care to continue goals of care conversation with patient's siblings Gunjan Lopez and Gregorio (Gunjan and Gregorio to participate in goals of care conversation via telephone conference). * Patient with extensive psychiatric history to include paranoid schizophrenia, dementia, anxiety, depression requiring multiple psychiatric hospitalizations, state hospitalizations and history of ECT. Resident of long-term facility for the past 5 years. Patient with worsening agitation/pacing, eating poorly and sleep disturbances worsened 4 weeks prior to ED arrival. Discussed patient's clinical condition with Dr. Escobedo and Dr. Guzmán . Reviewed benefits, risks and limitations of PEG tube/artificial nutrition as a mean to maximize patient' s medical and psychiatric management. Burdens/risks of PEG tube likely to outweigh any potential benefit given his clinical condition. Patient severely debilitated, cachectic. Patient's condition not likely reversible given multiple ongoing chronic comorbidities, profound debilitated state/physical deconditioning, cachexia, malnutrition with minimal oral intake for the past 4 weeks. Overall prognosis very poor. Patient hospice appropriate should family elects comfort-directed care. * SYMPTOMS: = Decreased oral intake secondary to paranoid. Patient with reported decreased oral intake for the past 3 weeks, worsen for the past 7 days. Patient refusing oral intake and medications. Psych following, patient restarted on Seroquel. History of PEG tube placement in the past. = Debility, progressive. Resident of long-term facility for the past 4-5 years. Requiring assistance with ADL's. Likely to continue to worsen. * Case has been discussed with Dr. Escobedo, Dr. Guzmán and bedside RN Blanca. * Palliative care contact information has been provided to patient's brother John. * Palliative acre will continue to f/u for further clarification of goals of care as patient's clinical course continues to evolve. . Time Spent Total Floor Time (mins): 48 (Total time to include review medical records, physical exam, telephone conversation with patient's brother John, separate telephone conversation with sister Gunjan, case discussion with Dr. Escobedo, Dr. Guzmán and bedside RN.) >50% Counseling/Coord of Care: Yes Attestation To help prompt me to consider important information that might be impacting today's encounter and assessment, information from prior notes written by myself or my colleagues may have been "brought forward" into today's note. My signature on this note, however, is an attestation that I personally performed the exam, history, and/or decision-making noted today, and, unless otherwise indicated, the interactions with patient, family, and staff as well as the review of records all occurred today. I also attest that the listed assessment and stated plan reflect my best clinical judgment today based on the combination of historical information, prior notes, and today's exam/ interactions. When time spent is documented, it refers only to time spent today by the signer, or if indicated, combined time spent today by collaborating physician/nurse practitioner. Felicia Mcmullen Apr 20, 2017 16:04
[2017-04-20] MEDS: FLUCONAZOLE 100 MG PREMIX BAG 50 ML IV SCH (17:07)
[2017-04-20] MEDS: ENOXAPARIN SODIUM 30 MG/0.3 ML SYRINGE SQ SCH (17:08)
[2017-04-20] MEDS: D5W + KCL 20 MEQ INJ 1,000 ML IV SCH (17:20)
[2017-04-20] MEDS: POTASSIUM CHLOR 20 MEQ PREMIX 100 ML IV SCH ×2 (17:20→21:17)
[2017-04-20 20:00] VITALS: BP 128/70; PULSE 103; RESP 18; TEMP 96.3; O2SAT 99
[2017-04-21] VITALS: BP 122/65; PULSE 88; RESP 18; TEMP 96.5; O2SAT 98
[2017-04-21] MEDS: D5W + KCL 20 MEQ INJ 1,000 ML IV SCH (03:47)
[2017-04-21 07:28] LABS: BICARBONATE 25.8 MEQ/L (21.0-32.0); POTASSIUM 4.2 MEQ/L (3.5-5.1)
[2017-04-21 08:00] VITALS: BP 134/60; PULSE 83; RESP 17; TEMP 98.7; O2SAT 97
[2017-04-21] MEDS: DOCUSATE SODIUM 50 MG/SENNA 8.6 MG TAB PO SCH (08:39)
[2017-04-21] MEDS: SODIUM CHLORIDE 0.9% FLUSH 10 ML FLUSH IV FLUSH SCH (08:39)
[2017-04-21] MEDS: QUEtiapine FUMARATE 100 MG TAB PO SCH (08:42)
[2017-04-21] MEDS ORDERED: DEXTROSE 5%-LACTATED RING INJ 1,000 ML IV SCH (10:00)
--- NOTE | 2017-04-21 11:05 | HHI.PR ---
Objective Vitals Vital Signs Date Time Temp Pulse Resp B/P Pulse Ox O2 Delivery O2 Flow Rate FiO2 04/21/17 08:00 98.7 83 17 134/60 97 04/21/17 00:00 96.5 88 18 122/65 98 04/20/17 20:00 96.3 103 18 128/70 99 04/20/17 16:00 98.3 86 16 132/76 97 04/20/17 12:00 97.8 89 17 138/63 97 I/O 04/20/17 04/20/17 04/20/17 04/21/17 04/21/17 04/21/17 07:00 15:00 23:00 07:00 15:00 23:00 Intake Total 574 ml 755 ml 784 ml 642 ml Output Total 200 ml Balance 574 ml 555 ml 784 ml 642 ml Intake Oral 0 ml 0 ml 0 ml IV Total 574 ml 755 ml 784 ml 642 ml Output Urine Total 200 ml # Voids 2 1 0 # Bowel Movements 0 0 0 Result Diagram: 04/18/17 0440 04/21/17 0505 Objective Remarks GENERAL: Sleepy, opens eyes on verbal commands, NAD. SKIN: Warm and dry. HEAD: Normocephalic. EYES: No scleral icterus. No injection or drainage. NECK: Supple, trachea midline. No JVD or lymphadenopathy. CARDIOVASCULAR: Regular rate and rhythm without murmurs, gallops, or rubs. RESPIRATORY: Breath sounds equal bilaterally. No accessory muscle use. GASTROINTESTINAL: Abdomen soft, non-tender, nondistended. MUSCULOSKELETAL: No cyanosis, or edema. BACK: Nontender without obvious deformity. No CVA tenderness. Procedures None. A/P Problem List: (1) Failure to thrive in adult ICD Code: R62.7 Status: Acute (2) Altered mental status, unspecified ICD Code: R41.82 Status: Acute (3) Dehydration ICD Code: E86.0 Status: Acute (4) Hypercalcemia ICD Code: E83.52 Status: Acute (5) Schizophrenia ICD Code: F20.9 Status: Chronic (6) Dementia ICD Code: F03.90 Status: Chronic (7) GERD (gastroesophageal reflux disease) ICD Code: K21.9 Status: Chronic (8) HTN (hypertension) ICD Code: I10 Status: Chronic (9) Oral thrush ICD Code: B37.0 Status: Acute Assessment and Plan This is a 71-year-old male patient sent from a local custodial facility with past medical history which includes dementia, schizophrenia, depression, hypertension, hyperlipidemia and GERD. Patient was sent to the emergency department because he has not poor by mouth intake for the past 5 days. According to review of custodial facility records patient has had a decline over the past 3 weeks. At this point patient is non-verbal and unable to follow commands therefore information gathered from physical exam as well as review of prior computerized charting and custodial facility documentation. Patient appears cachectic, dehydrated and smells of urine. Poor by mouth intake Altered mental status Dehydration Hypernatremia Patient has received 1 L NS fluid bolus emergency department Discontinue D51/2NS and KCL at 100ml/hour. Patient has significant free water deficit. Na 154 --> 155. Patient was on D5W @84cc/hour. Na 155 --> 151. However, due to lack of IV access, he is not receiving any fluid. Na increased from 151 --> 153. IV access was obtained later and per RN, D5W was re-started. BMP pending this AM CT of the head reviewed no acute process identified CXR no acute disease process UA reviewed no culture indicated Serial neuro checks Consulted speech - recommends NPO. Possible oral thrush- patient refusing by mouth medications Diflucan 100 mg IV daily Dementia Schizophrenia Depression Acute agitation - Psychiatry consult pending. Patient would benefit from scheduled anti- psychotics. - Will keep Haldol IM available PRN. - Palliative care was consulted. Appreciate Palliative care input - they talked to patient's brother. - Psychiatry recommendations appreciated. Continue Seroquel and Haldol. Hypertension - Currently normotensive. No acute issues. Hyperlipidemia - Continue to hold. If PO intake improves, will re-start home meds. Full code. Lovenox. Problem Qualifiers (1) Altered mental status, unspecified: Qualified Code: R41.82 - Altered mental status, unspecified altered mental status type Rafael Guzmán DO Apr 21, 2017 11:05
[2017-04-21 12:00] VITALS: BP 129/68; PULSE 78; RESP 18; TEMP 97.8; O2SAT 96
[2017-04-21] MEDS: HALOPERIDOL LACTATE 5 MG/ML AMP IM PRN (15:47)
[2017-04-21] MEDS: FLUCONAZOLE 100 MG PREMIX BAG 50 ML IV SCH (15:48)
[2017-04-21 16:00] VITALS: BP 134/95; PULSE 118; RESP 17; TEMP 97.3; O2SAT 97
[2017-04-21] MEDS: ENOXAPARIN SODIUM 30 MG/0.3 ML SYRINGE SQ SCH (16:47)
--- NOTE | 2017-04-21 17:42 | HHI.HCPN ---
Reason for visit a. To assist with evaluation and management of symptoms including: Decreased oral intake and debility. b. To assist medical decision maker(s) with: better understanding of current medical conditions; weighing benefits/burdens of medical treatment options; making medical treatment decisions. . Subjective/Interval History Mr. Torres is a 71-year-old male with a medical history significant for Parkinson's disease, paranoid schizophrenia, depression, GERD and hypertension. Patient presented from long-term facility for evaluation of altered mental status and decreased oral intake for the previous 5 days. Long-term facility reporting clinical decline for the previous 3 weeks. Patient arrived nonverbal , limited history. CT of the head negative for acute process. Patient was admitted for further management of altered mental status, dehydration and failure to thrive. Patient with worsening clinical condition as evidenced by increased agitation/paranoia requiring 4-point restraint. Palliative care was consulted for further clarifications of goals of care and assistance with healthcare proxy decision maker. Patient seen in medical floor. He was laying in bed in moderate distress secondary to restlessness/agitation. In the process of receiving Haldol. Remains on 4 point restraint. Patient with eyes open, not tracking. No following any commands or attempting to communicate. Patient pale, cachectic. Discussed case with bedside RN Blanca. Patient has been seen by speech therapy who recommended nothing by mouth. Patient afebrile, stable hemodynamically. Tolerating room air, oxygen saturation in the mid to high 90s. Laboratory today showing sodium 145, potassium 4.2, BUN/creatinine 24/1.02. Patient receiving LR/dextrose infusion at 75 mL/hour. No new imaging. Family meeting. In attendance patient's brother John Torres, sister Gunjan Welch (via telephone) and brother Gregorio Torres (also via telephone). Medical update provided. Reviewed patient's extensive psychiatric history to include paranoid schizophrenia, dementia, anxiety, depression requiring multiple psychiatric hospitalizations, state hospitalizations and history of ECT. Patient with worsening agitation/pacing, eating poorly and sleep disturbances worsened 4 weeks prior to ED arrival. Reviewed benefits, risks and limitations of PEG tube/artificial nutrition as a mean to maximize patient's medical and psychiatric management. Patient severely debilitated, cachectic. Concern of patient's current clinical condition vs psychiatric history. Discussed that patient's condition not likely reversible given multiple ongoing chronic comorbidities, profound debilitated state/physical deconditioning, cachexia, malnutrition with very limited oral intake for the past 3-4 weeks. Overall prognosis very poor for meaningful recovery. Discussed continuation of conservative management short of no code vs comfort-directed care with hospice given his terminal condition. Family verbalized that comfort-directed care would be the most humane and dignified goal of treatment for patient given his condition. Family electing to transition patient to comfort-directed care with hospice, discharge to hospice care center for symptom management and end-of- life care. All 3 siblings in agreement. Ongoing emotional support and active listening provided, brother John very emotional. Hospice referral made. Case discussed with Dr. Guzmán and bedside RN Blanca. . Family/friend interactions See interval note. . Advance Directives Living Will: Never completed Health Care Surrogate: Never completed Durable Power of Demand Inspector: Never completed Advance Directive Specifics Health Care Surrogate(s): No advance directives completed. As per [place] law, healthcare proxy decision- making falls to patient's only son vs majority of siblings, for which patient has 3. . Significant change in goals: No code. Family electing to transition patient to comfortdirected care with hospice. . Objective Vital Signs Date Time Temp Pulse Resp B/P Pulse Ox O2 Delivery O2 Flow Rate FiO2 04/21/17 16:00 97.3 118 17 134/95 97 04/21/17 12:00 97.8 78 18 129/68 96 04/21/17 08:00 98.7 83 17 134/60 97 04/21/17 00:00 96.5 88 18 122/65 98 04/20/17 20:00 96.3 103 18 128/70 99 Intake & Output 04/21/17 04/21/17 07:00 19:00 Intake Total 1426 ml 823 ml Balance 1426 ml 823 ml Intake Oral 0 ml IV Total 1426 ml 823 ml # Voids 1 # Bowel Movements 0 Physical Exam CONSTITUTIONAL/GENERAL: This is an pale, cachectic elderly man in bed, 4 point restraint. Eyes open, not tracking. Not interactive. Restless at times. TUBES/LINES/DRAINS: PIV to left upper arm, soft wrist and ankle restraints. SKIN: No jaundice, rashes, or lesions. Very pale, small areas of ecchymosis and scabs to right elbow. Skin temperature appropriate. Not diaphoretic. HEAD: Atraumatic. Normocephalic. Bilateral temporal wasting noted. EYES: Unable to assess, Eyes closed. Patient did not cooperate with physical exam. ENT: Unable to evaluate hearing secondary to clinical status. Nose without bleeding or purulent drainage. Tongue with white coating, thrush. NECK: Trachea midline. Supple. CARDIOVASCULAR: Regular rate and rhythm. Peripheral pulses symmetric. RESPIRATORY/CHEST: Symmetric, increased work of breathing with agitation. Clear , diminished to auscultation. GASTROINTESTINAL: Abdomen soft, non-tender, nondistended. Bowel sounds present. GENITOURINARY: Without palpable bladder distension. MUSCULOSKELETAL: Extremities without clubbing, cyanosis, or edema. Generalize muscle atrophy to all 4 extremities. NEUROLOGICAL: Not communicating. Eyes open, not tracking. Nonverbal during my visit. PSYCHIATRIC: Periods of restlessness/agitation. . Diagnostic Tests Laboratory Laboratory Tests Test 04/18/17 04/19/17 04/20/17 04/21/17 19:02 06:07 14:13 05:05 Sodium Level 151 MEQ/L 153 MEQ/L 148 MEQ/L 145 MEQ/L (136-145) (136-145) (136-145) (136-145) Potassium Level 4.4 MEQ/L 3.3 MEQ/L 4.2 MEQ/L (3.5-5.1) (3.5-5.1) (3.5-5.1) Chloride Level 116 MEQ/L 111 MEQ/L 110 MEQ/L (98-107) (98-107) (98-107) Carbon Dioxide Level 30.3 MEQ/L 31.1 MEQ/L 25.8 MEQ/L (21.0-32.0) (21.0-32.0) (21.0-32.0) Anion Gap 7 MEQ/L (5-15) 6 MEQ/L (5-15) 9 MEQ/L (5-15) Blood Urea Nitrogen 28 MG/DL (7-18) 25 MG/DL (7-18) 24 MG/DL (7-18) Creatinine 1.20 MG/DL 1.10 MG/DL 1.02 MG/DL (0.60-1.30) (0.60-1.30) (0.60-1.30) Estimat Glomerular Filtration 60 ML/MIN (>89) 66 ML/MIN (>89) 72 ML/MIN (>89) Rate Random Glucose 81 MG/DL 136 MG/DL 100 MG/DL (74-106) (74-106) (74-106) Calcium Level 9.3 MG/DL 8.6 MG/DL 8.2 MG/DL (8.5-10.1) (8.5-10.1) (8.5-10.1) Result Diagram: 04/18/17 1487 04/21/17 3118 Assessment and Plan Disease Oriented Problem List: (1) Failure to thrive in adult (2) Paranoid schizophrenia (3) Dehydration (4) Cachexia (5) Dementia (6) Physical deconditioning Symptom Scale: (1) Decreased oral intake 0-10 Scale: Unable to quantify Comment: Progressive over the past 3 weeks. Worsened for the past 7 days. (2) Debility 0-10 Scale: Unable to quantify Comment: Progressive. Receiving a long-term facility for the past 4-5 years. Pertinent Non-Medical Issues Psychosocial: Patient originally from [facility]. Resident of long- term facility for the past 4-5 years. Patient is single, he has one estranged son by the same name who resides in [place]. Patient has 3 siblings. Patient worked until age 53 at an [employer] until he began presenting with paranoia and "had a mental break down" . Spiritual: No yazidi affiliation. Legal: No advance directives completed. Ethical issues impacting care: Patient unable to participating in medical decision-making, lacks capacity. Pending identification of proxy decision maker. Important Contacts Brother John Torres Only son Cedric Torres -unable to reach. [employer] report Secured. Sister Gunjan Welch . She resides in [place]. Brother Gregorio Torres . He resides in [place]. . Prognosis Mr. Torres is a 71-year-old male with a medical history significant for Parkinson's disease, paranoid schizophrenia, depression, GERD and hypertension. Patient presented from long-term facility for evaluation of altered mental status and decreased oral intake for the previous 5 days. Long-term facility reporting clinical decline for the previous 3 weeks. Patient at high risk for further complications, continue decline and given his debilitated state/ failure to thrive/cachectic, refusal of medications and oral intake, multiple ongoing psychiatric and medical comorbidities, progressive clinical decline and physical deconditioning. Overall poor prognosis. . Code Status: No Code Plan * CODE STATUS: DNR/DNI. * MEDICAL DECISION-MAKING: Patient incapacitated for medical decision-making secondary to psychiatric condition -paranoid schizophrenia. Determination of incapacity completed by patient's primary care provider, Dr. Bates on 02/24/15. Not likely to regain capacity. No advance directives completed. Brother John has been serving as patients medical decision maker, Health care proxy designation form from [facility] provided. It should be noted patient has a son and as per [place] Statutes legal proxy decision making would fall to patient's son first, However, son has been unable to be reached/located (see Palliative Care SW notes). Both of patient's parents are . In this setting and according to [place] statute, proxy decision making falls to the majority of patient's siblings, for which he has 3 living siblings (John Torres, Gregorio Torres and Gunjan Yuri). * GOALS OF CARE: All of patient's 3 siblings electing to transition patient to comfort-directed care with hospice given multiple ongoing chronic comorbidities , profound debilitated state/physical deconditioning, cachexia, malnutrition with very limited oral intake for the past 3-4 weeks. Overall prognosis very poor for meaningful recovery. Family electing to discharge patient to hospice care center for symptom management and end of life care. * SYMPTOMS: = Decreased oral intake secondary to paranoid. Patient with reported decreased oral intake for the past 3 weeks, worsen for the past 7 days. Patient refusing oral intake and medications. Psych following, patient restarted on Seroquel. = Debility, progressive. Resident of long-term facility for the past 4-5 years. Requiring assistance with ADL's. Likely to continue to worsen. = Agitation: Haldol available as needed. * Hospice referral made. * Ongoing emotional support and active listening provided to patient's family. * Case has been discussed with Dr. Guzmán and bedside RN Blanca. * Palliative care contact information has been provided to patient's family. * Family has expressed their appreciation for the care provided to patient. . Time Spent Total Floor Time (mins): 48 (Total time to include review medical records, physical exam, family meeting, case discussion with Dr. Green bedside RN.) >50% Counseling/Coord of Care: Yes Attestation To help prompt me to consider important information that might be impacting today's encounter and assessment, information from prior notes written by myself or my colleagues may have been "brought forward" into today's note. My signature on this note, however, is an attestation that I personally performed the exam, history, and/or decision-making noted today, and, unless otherwise indicated, the interactions with patient, family, and staff as well as the review of records all occurred today. I also attest that the listed assessment and stated plan reflect my best clinical judgment today based on the combination of historical information, prior notes, and today's exam/ interactions. When time spent is documented, it refers only to time spent today by the signer, or if indicated, combined time spent today by collaborating physician/nurse practitioner. Felicia Mcmullen Apr 21, 2017 17:42
[2017-04-21] MEDS ORDERED: HALOPERIDOL LACTATE 5 MG/ML AMP IM PRN (17:45)
--- NOTE | 2017-04-21 22:12 | HHI.DS ---
Discharge Summary Admission Date Apr 17, 2017 at 16:51 Discharge Date: Apr 21, 2017 Admitting Diagnosis altered mental status, failure to thrive, dehydration (1) Failure to thrive in adult ICD Code: R62.7 Diagnosis: Principal (2) Altered mental status, unspecified ICD Code: R41.82 Diagnosis: Principal (3) Dehydration ICD Code: E86.0 Diagnosis: Principal (4) Hypercalcemia ICD Code: E83.52 Diagnosis: Secondary (5) Schizophrenia ICD Code: F20.9 Diagnosis: Secondary (6) Dementia ICD Code: F03.90 Diagnosis: Secondary (7) GERD (gastroesophageal reflux disease) ICD Code: K21.9 Diagnosis: Secondary (8) HTN (hypertension) ICD Code: I10 Diagnosis: Secondary (9) Oral thrush ICD Code: B37.0 Diagnosis: Principal Procedures None. Brief History - From Admission This is a 71-year-old male patient sent from a local halfway facility with past medical history which includes dementia, schizophrenia, depression, hypertension, hyperlipidemia and GERD. Patient was sent to the emergency department because he has had poor by mouth intake for the past 5 days. According to review of halfway facility records patient has had a decline over the past 3 weeks. At this point patient is non-verbal and unable to follow commands therefore information gathered from physical exam as well as review of prior computerized charting and halfway facility documentation. Patient appears cachectic, dehydrated and smells of urine. CBC/BMP: 04/18/17 0440 04/21/17 0505 Significant Findings Laboratory Tests Test 04/19/17 04/20/17 04/21/17 06:07 14:13 05:05 Sodium Level 153 MEQ/L 148 MEQ/L (136-145) (136-145) Chloride Level 116 MEQ/L 111 MEQ/L 110 MEQ/L (98-107) (98-107) (98-107) Blood Urea Nitrogen 28 MG/DL (7-18) 25 MG/DL (7-18) 24 MG/DL (7-18) Estimat Glomerular Filtration 60 ML/MIN (>89) 66 ML/MIN (>89) 72 ML/MIN (>89) Rate Potassium Level 3.3 MEQ/L (3.5-5.1) Random Glucose 136 MG/DL (74-106) Calcium Level 8.2 MG/DL (8.5-10.1) Imaging Last Impressions Head CT 04/17/171401 Signed Impressions: Service Date/Time: Monday, April 17, 2017 15:39 - CONCLUSION: Negative for an acute process. Oneil Rae MD FACR Chest X-Ray 04/17/171401 Signed Impressions: Service Date/Time: Monday, April 17, 2017 14:36 - CONCLUSION: No acute disease. Wing Rivera MD PE at Discharge GENERAL: Sleepy, opens eyes on verbal commands, NAD. SKIN: Warm and dry. HEAD: Normocephalic. EYES: No scleral icterus. No injection or drainage. NECK: Supple, trachea midline. No JVD or lymphadenopathy. CARDIOVASCULAR: Regular rate and rhythm without murmurs, gallops, or rubs. RESPIRATORY: Breath sounds equal bilaterally. No accessory muscle use. GASTROINTESTINAL: Abdomen soft, non-tender, nondistended. MUSCULOSKELETAL: No cyanosis, or edema. BACK: Nontender without obvious deformity. No CVA tenderness. Pt update on day of discharge Patient remains in incoherent status. Does not communicate. Requiring restraints. He is somewhat calmer with Seroquel. Hospital Course This is a 71-year-old male patient sent from a local halfway facility with past medical history which includes dementia, schizophrenia, depression, hypertension, hyperlipidemia and GERD. Patient was sent to the emergency department because he has not poor by mouth intake for the past 5 days. According to review of halfway facility records patient has had a decline over the past 3 weeks. At this point patient is non-verbal and unable to follow commands therefore information gathered from physical exam as well as review of prior computerized charting and halfway facility documentation. Patient appears cachectic, dehydrated and smells of urine. Poor by mouth intake Altered mental status Dehydration Hypernatremia Patient received 1 L NS fluid bolus emergency department Discontinue D51/2NS and KCL at 100ml/hour. Patient has significant free water deficit. Na 154 --> 155 Patient was on D5W @84cc/hour. Na 155 --> 151. However, due to lack of IV access, he is not receiving any fluid. Na increased from 151 --> 153. IV access was obtained later and per RN, D5W was re-started. Sodium normalized to 145. CT of the head reviewed no acute process identified CXR no acute disease process UA reviewed no culture indicated Serial neuro checks Consulted speech - recommends NPO. Possible oral thrush- patient refusing by mouth medications Diflucan 100 mg IV daily Dementia Schizophrenia Depression Acute agitation - Will keep Haldol IM available PRN. - Palliative care was consulted. Appreciate Palliative care input - After discussing with family members, patient was evaluated by hospice. He was found to be hospice appropriate. Subsequently, patient is being discharged to hospice care center. - Psychiatry recommendations appreciated. Continued Seroquel and Haldol. Hypertension - Currently normotensive. No acute issues. Hyperlipidemia - Continue to hold. Discussed with paper cone maker. Patient is being discharged to hospice care center. All medications per hospice team. Pt Condition on Discharge: Deteriorating Discharge Disposition: Hospice/Med Facility Discharge Time: <= 30 minutes Discharge Instructions DIET: Follow Instructions for: As Tolerated, No Restrictions Additional Diet Instructions: Paitent likes wrapped food. Activities you can perform: Regular-No Restrictions Rafael Guzmán DO Apr 21, 2017 22:12
== END 2017-04-21 18:49 | disposition hospice, inpatient (51) | DRG 641 ==
LOC: NEPE 13:38 → NEDA 16:51 → N07B 20:08
PROVIDERS: ADMIT Internal Medicine; ATTEND Internal Medicine
DX: E86.0 Dehydration (principal); E87.0 Hyperosmolality and hypernatremia; R64 Cachexia; E46 Unspecified protein-calorie malnutrition; B37.0 Candidal stomatitis; F05 Delirium due to known physiological condition; F03.90 Unspecified dementia, unspecified severity, without behavioral disturbance, psychotic disturbance, mood disturbance, and anxiety; Z68.1 Body mass index [BMI] 19.9 or less, adult; Z66 Do not resuscitate; F20.0 Paranoid schizophrenia; G20 Parkinson's disease; K21.9 Gastro-esophageal reflux disease without esophagitis; I10 Essential (primary) hypertension; R62.7 Adult failure to thrive; E78.5 Hyperlipidemia, unspecified; F32.9 Major depressive disorder, single episode, unspecified; E87.1 Hypo-osmolality and hyponatremia; F41.9 Anxiety disorder, unspecified; R41.82 Altered mental status, unspecified; E83.52 Hypercalcemia; Z91.5 Personal history of self-harm; Z78.1 Physical restraint status
CPT/HCPCS: 70450; 71010; 80048; 80053; 81001; 82550; 82552; 83036; 83605; 83735; 84100; 84295; 84439; 84443; 84484; 85025; 85610; 85730; 86403; 87040; 87077; 87186; 87205; 93005; J1450; J1630; J1650; J3480; J7040; J7070; J7121